=== PATIENT | male | born 1960 | race Caucasian/White ===

== ENCOUNTER 2017-10-28 16:38 | Inpatient (IN) | payer SELFPAY ==
[~2017-10-28] VITALS: Ht 172.7 cm; Wt 70.1 kg
[2017-10-28] VITALS (19 sets, daily range): BP systolic 149–220; BP diastolic 87–136
[2017-10-28] MEDS ORDERED: LABETALOL HCL 20 MG/4 ML VIAL ONE (16:59)
--- NOTE | 2017-10-28 17:13 | ED Cardiac General ---
History of Present Illness General Stated Complaint: HIGH BP Source: patient, family Exam Limitations: no limitations History of Present Illness Date Seen by Provider: Oct 28, 2017 Time Seen by Provider: 17:04 Initial Comments Patient presents to the ER by private conveyance from the urgent care clinic where he was seen for high blood pressure. He reports a high blood pressure in the 280 systolic range. He has not been following with a doctor since 2002 when he had a heart attack. He does not take any medications. He has no other known history but his significant other reports that for the last 3 months she thinks she's been dragging his left side and she is afraid he might of had a stroke. He is not having any facial asymmetry, slurred speech or confusion presently but he is reporting for the past 3-6 months is been wobbly on his feet and prone to falls. He's not had any recent falls. His not had any blackouts or brownouts. He is not having any chest pain, shortness of breath, nausea, fevers , chills, cough, dysuria. He has slowed is drinking down significantly he says. He smokes about half pack per day. Allergies and Home Medications Allergies Coded Allergies: No Known Drug Allergies (Unverified , 10/28/17) Patient Home Medication List Home Medication List Reviewed: Yes Review of Systems Constitutional: No chills, No diaphoresis, No fever, No malaise EENTM: No Blurred Vision, No Double Vision Respiratory: Denies Cough, Denies Shortness of Air Cardiovascular: Denies Chest Pain, Denies Edema Gastrointestinal: Denies Abdomen Distended, Denies Abdominal Pain, Denies Nausea, Denies Vomiting Genitourinary: Denies Burning, Denies Discharge Musculoskeletal: No back pain, No joint pain Skin: No pruritus, No rash Psychiatric/Neurological: Denies Headache, Denies Numbness, Denies Paresthesia ; Pre-Existing Deficit; Denies Seizure Past Lfxispd-Kszqev-Fqtbba Hx Patient Social History Alcohol Use: Occasionally Uses Recreational Drug Use: No Smoking Status: Current Everyday Smoker Type Used: Cigarettes (0.5 ppd) Recent Foreign Travel: No Contact w/Someone Who Travel: No Physical Exam Vital Signs Capillary Refill : Height, Weight, BMI Height: '" Weight: lbs. oz. kg; BMI Method: General Appearance: No Apparent Distress, WD/WN HEENT: PERRL/EOMI, TMs Normal, Normal ENT Inspection, Pharynx Normal, Moist Mucous Membranes Neck: Full Range of Motion, Normal Inspection, Non Tender, Supple Respiratory: Chest Non Tender, Lungs Clear, Normal Breath Sounds, No Accessory Muscle Use, No Respiratory Distress Cardiovascular: Regular Rate, Rhythm, No Edema, Normal Peripheral Pulses Gastrointestinal: Normal Bowel Sounds, Non Tender, Soft Extremity: Normal Capillary Refill, Non Tender, No Calf Tenderness, No Pedal Edema Neurologic/Psychiatric: Alert, Oriented x3, No Motor/Sensory Deficits, Normal Mood/Affect, eye physician II-XII Norm as Tested; No Disoriented, No Facial Droop, No Motor Weakness; Other (negative for pronator drift times all 4 extremities. NIH scale 0) Skin: Normal Color, Warm/Dry Progress/Results/Core Measures Results/Orders Lab Results Laboratory Tests Test 10/28/17 16:55 10/28/17 17:31 10/28/17 18:08 Range/Units White Blood Count 11.1 H 4.3-11.0 10^3/uL Red Blood Count 5.43 4.35-5.85 10^6/uL Hemoglobin 17.6 13.3-17.7 G/DL Hematocrit 47 40-54 % Mean Corpuscular Volume 87 80-99 FL Mean Corpuscular Hemoglobin 32 25-34 PG Mean Corpuscular Hemoglobin Concent 37 H 32-36 G/DL Red Cell Distribution Width 13.1 10.0-14.5 % Platelet Count 247 130-400 10^3/uL Mean Platelet Volume 10.3 7.4-10.4 FL Neutrophils (%) (Auto) 63 42-75 % Lymphocytes (%) (Auto) 24 12-44 % Monocytes (%) (Auto) 7 0-12 % Eosinophils (%) (Auto) 5 0-10 % Basophils (%) (Auto) 1 0-10 % Neutrophils # (Auto) 7.0 1.8-7.8 X 10^3 Lymphocytes # (Auto) 2.7 1.0-4.0 X 10^3 Monocytes # (Auto) 0.8 0.0-1.0 X 10^3 Eosinophils # (Auto) 0.5 H 0.0-0.3 10^3/uL Basophils # (Auto) 0.1 0.0-0.1 10^3/uL Prothrombin Time 13.4 12.2-14.7 SEC INR Comment 1.0 0.8-1.4 Activated Partial Thromboplast Time 28 24-35 SEC D-Dimer 0.31 0.00-0.49 UG/ML Sodium Level 138 135-145 MMOL/L Potassium Level 3.4 L 3.6-5.0 MMOL/L Chloride Level 102 98-107 MMOL/L Carbon Dioxide Level 25 21-32 MMOL/L Anion Gap 11 5-14 MMOL/L Blood Urea Nitrogen 15 7-18 MG/DL Creatinine 1.55 H 0.60-1.30 MG/DL Estimat Glomerular Filtration Rate 46 BUN/Creatinine Ratio 10 Glucose Level 126 H 70-105 MG/DL Calcium Level 10.1 8.5-10.1 MG/DL Total Bilirubin 1.5 H 0.1-1.0 MG/DL Aspartate Amino Transf (AST/SGOT) 45 H 5-34 U/L Alanine Aminotransferase (ALT/SGPT) 51 0-55 U/L Alkaline Phosphatase 119 40-136 U/L Troponin I < 0.30 <0.30 NG/ML Total Protein 8.7 H 6.4-8.2 GM/DL Albumin 4.7 H 3.2-4.5 GM/DL Glucometer 114 H 70-110 MG/DL Urine Color JUDSON H Urine Clarity CLEAR Urine pH 5 5-9 Urine Specific [place] 1.020 1.016-1.022 Urine Protein 4+ NEGATIVE Urine Glucose (UA) NEGATIVE NEGATIVE Urine Ketones NEGATIVE NEGATIVE Urine Nitrite NEGATIVE NEGATIVE Urine Bilirubin NEGATIVE NEGATIVE Urine Urobilinogen 4 H NORMAL MG/DL Urine Leukocyte Esterase 2+ H NEGATIVE Urine RBC (Auto) 3+ H NEGATIVE Urine RBC 5-10 H /HPF Urine WBC 5-10 H /HPF Urine Crystals NONE /LPF Urine Bacteria TRACE /HPF Urine Casts NONE /LPF Urine Mucus LARGE H /LPF Urine Culture Indicated YES My Orders Orders - EZEQUIEL RIGGS Labetalol Injection (Normodyne Injection (10/28/17 16:59) Cbc With Automated Diff (10/28/17 17:05) Protime With Inr (10/28/17 17:05) Partial Thromboplastin Time (10/28/17 17:05) Comprehensive Metabolic Panel (10/28/17 17:05) Fibrin Degradation Products (10/28/17 17:05) Troponin I (10/28/17 17:05) Ua Culture If Indicated (10/28/17 17:05) Chest 1 View, Ap/Pa Only (10/28/17 17:05) Ekg Tracing (10/28/17 17:05) Nothing By Mouth (10/29/17 Breakfast) Accucheck Stat ONCE (10/28/17 17:05) Saline Lock/Iv-Start (10/28/17 17:05) Saline Lock/Iv-Start (10/28/17 17:05) Vital Signs Stroke Patient Q15M (10/28/17 17:05) Ct Head Wo-R/O Stroke (10/28/17 17:05) O2 (10/28/17 17:05) Labetalol Injection (Normodyne Injection (10/28/17 17:15) Monitor-Rhythm Ecg Trace Only (10/28/17 17:05) Dysphagia Screening Tool (10/28/17 17:05) Lipid Panel (10/29/17 06:00) Labetalol Injection (Normodyne Injection (10/28/17 17:15) Labetalol Injection (Normodyne Injection (10/28/17 17:15) Medications Given in ED Current Medications Medications Dose Ordered Sig/Yumiko Route Start Time Stop Time Status Last Admin Dose Admin Labetalol HCl 10 mg ONCE ONCE IV 10/28/17 17:15 10/28/17 17:16 DC 10/28/17 17:03 10 MG Progress Progress Note : Time: 17:18 Progress Note PE claims that he is unstable on his feet for the past 6 months but other than that this would be a hypertensive urgency as there is no neurologic deficits, chest pain, shortness of breath. We are going to obtain CT of his head see if there is any contributors. We've given him 20 mg of labetalol meds bringing his heart rate and blood pressure down although did not want to lower it any more than 30% and I would like to keep it around 180-200 systolic or above. Initial ECG Impression Date: Oct 28, 2017 Initial ECG Impression Time: 17:00 Initial ECG Rate: 113 Initial ECG Rhythm: Normal Sinus Initial ECG Intervals: QT (483) Initial ECG Impression: Nonspecific Changes (sinus tachycardia) Initial ECG Comparisson: No Previous ECG Available Comment Sinus tachycardia without appreciable ST-T wave elevation or depression. Diagnostic Imaging Diagonstic Imaging: Xray Plain Films/CT/US/NM/MRI: chest (1v) Reviewed: Reviewed by Me Diagonstic Imaging: CT Plain Films/CT/US/NM/MRI: head (without contrast) Reviewed: Reviewed by Me Departure Communication (Admissions) Time/Spoke to Admitting Phy: 18:40 Discussed case lab imaging Rocephin and labetalol drip and she will see the patient. She is okay with ICU admission. Dr. Brizuela. Impression Primary Impression: Hypertensive emergency without congestive heart failure Additional Impressions: TOI (acute kidney injury) UTI (urinary tract infection) Qualified Codes: N30.01 - Acute cystitis with hematuria Disposition: ADMITTED INPATIENT Condition: Stable Admissions Decision to Admit Reason: Admit from ER (General) Decision to Admit/Date: Oct 28, 2017 Time/Decision to Admit Time: 19:06 Departure-Patient Inst. Referrals: ANGEL BRIGGS MD (PCP) Primary Care Physician [facility] (Family) Primary Care Physician EZEQUIEL RIGGS Oct 28, 2017 17:13
[2017-10-28] MEDS ORDERED: LABETALOL HCL 20 MG/4 ML VIAL IV ONE ×2 (17:15)
[2017-10-28] MEDS ORDERED: LABETALOL INJECTION 200 MG in NS (IVPB) 160 ML IV SCH (17:15)
[2017-10-28 17:34] LABS: BASOPHILS # (AUTO) 0.1 10^3/uL (0.0-0.1); BASOPHILS % (AUTO) 1 % (0-10); EOSINOPHILS # (AUTO) 0.5 10^3/uL (0.0-0.3); EOSINOPHILS % (AUTO) 5 % (0-10); HEMATOCRIT 47 % (40-54); HEMOGLOBIN 17.6 G/DL (13.3-17.7); LYMPHOCYTES # (AUTO) 2.7 X 10^3 (1.0-4.0); LYMPHOCYTES % (AUTO) 24 % (12-44); MEAN CORPUSCULAR HEMOGLOBIN 32 PG (25-34); MEAN CORPUSCULAR HGB CONC 37 G/DL (32-36); MEAN CORPUSCULAR VOLUME 87 FL (80-99); MEAN PLATELET VOLUME 10.3 FL (7.4-10.4); MONOCYTES # (AUTO) 0.8 X 10^3 (0.0-1.0); MONOCYTES % (AUTO) 7 % (0-12); NEUTROPHILS % (AUTO) 63 % (42-75); PLATELET COUNT 247 10^3/uL (130-400); RED BLOOD COUNT 5.43 10^6/uL (4.35-5.85); RED CELL DISTRIBUTION WIDTH 13.1 % (10.0-14.5); WHITE BLOOD COUNT 11.1 10^3/uL (4.3-11.0)
--- NOTE | 2017-10-28 17:35 | Diagnostic Imaging Report ---
INDICATION: Hypertension, headache. COMPARISON: None. FINDINGS: Uumx-ej-qgeummly chronic small vessel ischemic changes are seen in the subcortical and periventricular white matter. There is no significant cerebral volume loss. There is no focus of acute ischemia or hemorrhage. No extra-axial fluid collection is identified. There is no dense vessel sign. The bony calvarium, visualized paranasal sinuses and mastoids are clear. IMPRESSION: 1. No acute intracranial abnormality. 2. Advanced chronic small vessel ischemic changes in the periventricular and subcortical white matter. Consider MRI for further evaluation. Dictated by: Dictated on workstation # [id number]
--- NOTE | 2017-10-28 17:47 | Diagnostic Imaging Report ---
Indication: Hypertension and suspected stroke. Frontal chest obtained at 5:23 p.m. FINDINGS: Heart and mediastinal silhouette are normal appearance. The lungs are clear. There is no pneumothorax or pleural fluid. IMPRESSION: Negative chest. Dictated by: Dictated on workstation # [id number]
[2017-10-28 17:51] LABS: FIBRIN DEGRADATION PRODUCTS 0.31 UG/ML (0.00-0.49); PROTHROMBIN TIME PATIENT 13.4 SEC (12.2-14.7)
[2017-10-28 17:52] LABS: ALANINE AMINOTRANSFERASE 51 U/L (0-55); ALBUMIN 4.7 GM/DL (3.2-4.5); ALKALINE PHOSPHATASE 119 U/L (40-136); BILIRUBIN,TOTAL 1.5 MG/DL (0.1-1.0); BUN/CREATININE RATIO 10; CALCIUM 10.1 MG/DL (8.5-10.1); CARBON DIOXIDE 25 MMOL/L (21-32); CHLORIDE 102 MMOL/L (98-107); CREATININE SERUM 1.55 MG/DL (0.60-1.30); GFR ESTIMATED 46; GLUCOSE 126 MG/DL (70-105); POTASSIUM 3.4 MMOL/L (3.6-5.0); SODIUM 138 MMOL/L (135-145); TOTAL PROTEIN 8.7 GM/DL (6.4-8.2)
[2017-10-28 18:21] LABS: BILIRUBIN,URINE NEGATIVE (NEGATIVE); CLARITY,URINE CLEAR; COLOR,URINE AMBER; GLUCOSE, URINE (UA) NEGATIVE (NEGATIVE); KETONES,URINE NEGATIVE (NEGATIVE); LEUKOCYTE ESTERASE ,URINE 2+ (NEGATIVE); NITRITE,URINE NEGATIVE (NEGATIVE); PH,URINE 5 (5-9); PROTEIN,URINE 4+ (NEGATIVE); UROBILINOGEN,URINE 4 MG/DL (NORMAL)
[2017-10-28 18:52] LABS: BACTERIA,URINE TRACE /HPF
[2017-10-28] MEDS ORDERED: CATHETER FLUSH 10 ML SYR IV PRN (19:15)
[2017-10-28] MEDS ORDERED: NS IV PRN ×2 (19:15)
[2017-10-28] MEDS ORDERED: ONDANSETRON 4 MG/2 ML (SDV) Z0FRAN IV PRN (19:15)
[2017-10-28] MEDS ORDERED: LABETALOL IV PRN ×2 (19:15)
[2017-10-28] MEDS: CATHETER FLUSH 10 ML SYR IV SCH (22:00)
[2017-10-28] MEDS: ACETAMINOPHEN 500 MG TAB (TYLENOL) PO PRN (22:02)
[2017-10-29] VITALS (39 sets, daily range): BP systolic 146–193; BP diastolic 87–127
[2017-10-29] MEDS ORDERED: NS IV 500 ML 500 ML ONE ×2 (00:05→01:10)
[2017-10-29] MEDS ORDERED: NS IV 500 ML 500 ML IV ONE ×2 (00:15→01:15)
[2017-10-29 03:32] LABS: BASOPHILS # (AUTO) 0.1 10^3/uL (0.0-0.1); BASOPHILS % (AUTO) 1 % (0-10); EOSINOPHILS # (AUTO) 0.3 10^3/uL (0.0-0.3); EOSINOPHILS % (AUTO) 3 % (0-10); HEMATOCRIT 40 % (40-54); HEMOGLOBIN 14.9 G/DL (13.3-17.7); LYMPHOCYTES % (AUTO) 30 % (12-44); MEAN CORPUSCULAR HEMOGLOBIN 33 PG (25-34); MEAN CORPUSCULAR HGB CONC 37 G/DL (32-36); MEAN CORPUSCULAR VOLUME 90 FL (80-99); MEAN PLATELET VOLUME 10.2 FL (7.4-10.4); MONOCYTES # (AUTO) 0.9 X 10^3 (0.0-1.0); MONOCYTES % (AUTO) 9 % (0-12); NEUTROPHILS # (AUTO) 5.7 X 10^3 (1.8-7.8); NEUTROPHILS % (AUTO) 57 % (42-75); PLATELET COUNT 216 10^3/uL (130-400); RED BLOOD COUNT 4.51 10^6/uL (4.35-5.85); RED CELL DISTRIBUTION WIDTH 12.9 % (10.0-14.5)
[2017-10-29 03:49] LABS: CREATININE SERUM 1.56 MG/DL (0.60-1.30); MAGNESIUM 2.2 MG/DL (1.8-2.4); PHOSPHORUS 4.1 MG/DL (2.3-4.7); POTASSIUM 3.5 MMOL/L (3.6-5.0)
--- NOTE | 2017-10-29 05:31 | Pulmonary Consultation ---
History of Present Illness History of Present Illness Date of Consultation 10/29/17 05:23 Time Seen by Provider: 05:23 Date of Admission History of Present Illness 57yo with hx of HTN, tobacco use, CAD (HX of [place] 2002) who presented from cardiology office secondary to HTN emergency SBP 280. Over the last 3 moths patient has been having left sided weakness, unsteady gait. Pt was admitted to ICU with Labetalol. CT of head only shows chronic changes. Denies facial asymmetry, slurred speech, or confusion. I am consulted for ICU management. Allergies and Home Medications Allergies Coded Allergies: No Known Drug Allergies (Unverified , 10/28/17) Past Usbjhwz-Ajvzsf-Riekxq Hx Patient Social History Alcohol Use: Occasionally Uses Alcohol Beverage of Choice: Beer Recreational Drug Use: No Smoking Status: Current Everyday Smoker Type Used: Cigarettes Recent Foreign Travel: No Contact w/Someone Who Travel: No Recent Infectious Disease Expo: No Recent Hopitalizations: No Physical Abuse: No Sexual Abuse: No Seasonal Allergies Seasonal Allergies: No Past Medical History Surgeries: No Respiratory: No Cardiac: Yes Heart Attack Neurological: No Genitourinary: No Gastrointestinal: No Musculoskeletal: No Endocrine: No HEENT: No (diminished vision bilaterally, needs new glasses) Cancer: No Psychosocial: No Nursing Suicide Risk Score: 0 Integumentary: No Blood Disorders: No Review of Systems Time Seen by Provider: 06:09 Constitutional: Sweats, Weakness, Malaise Eyes: No: Pain, Vision change, Conjunctivae inflammation, Eyelid inflammation, Other, Redness Respiratory: No: Cough, Dry, Shortness of breath, SOB with excertion, Wheezing , Hemoptysis, Pleuritic Pain, Sputum, Wheezing, Other Sepsis Event Evaluation Height, Weight, BMI Height: 5'8.00" Weight: 153lbs. 12.0oz. 69.446939so; 23.4 BMI Method:Stated Exam Exam Vital Signs Date Time Temp Pulse Resp B/P (MAP) Pulse Ox O2 Delivery O2 Flow Rate FiO2 10/29/17 04:00 60 16 159/90 (113) 95 Room Air 10/29/17 03:45 61 10 179/91 (120) 97 Room Air 10/29/17 03:30 60 16 160/98 (118) 96 Room Air 10/29/17 03:15 64 13 154/111 (125) 98 Room Air 10/29/17 03:00 65 15 158/90 (112) 95 Room Air 10/29/17 02:45 68 16 157/103 (121) 95 Room Air 10/29/17 02:30 67 16 159/92 (114) 95 Room Air 10/29/17 02:15 63 15 165/95 (118) 97 Room Air 10/29/17 02:00 71 14 154/94 (114) 95 Room Air 10/29/17 01:45 73 18 161/92 (115) 95 Room Air 10/29/17 01:30 69 15 152/87 (108) 100 Room Air 10/29/17 01:15 71 14 160/96 (117) 98 Room Air 10/29/17 01:00 70 18 154/93 (113) 96 Room Air 10/29/17 01:00 70 10/29/17 00:45 75 162/96 (118) Room Air 10/29/17 00:30 72 163/90 (114) Room Air 10/29/17 00:15 74 158/100 (119) Room Air 10/29/17 00:00 97 Room Air 10/29/17 00:00 97.0 74 156/95 (115) Room Air 10/28/17 23:45 75 18 154/97 (116) 99 Room Air 10/28/17 23:30 79 20 175/98 (123) 90 Room Air 10/28/17 23:15 75 17 169/94 (119) 96 Room Air 10/28/17 23:00 79 14 163/98 (119) 96 Room Air 10/28/17 22:45 79 12 162/101 (121) 97 Room Air 10/28/17 22:30 77 24 160/96 (117) 93 Room Air 10/28/17 22:15 80 14 149/97 (114) 96 Room Air 10/28/17 22:00 84 11 164/87 (112) 96 Room Air 10/28/17 21:45 81 21 160/98 (118) 96 Room Air 10/28/17 21:30 87 21 166/111 (129) 96 Room Air 10/28/17 21:15 84 19 168/100 (122) 96 Room Air 10/28/17 21:00 86 11 171/92 (118) 96 Room Air 10/28/17 20:45 85 18 185/99 (127) 95 Room Air 10/28/17 20:30 87 29 178/108 (131) 95 Room Air 10/28/17 20:00 99 Room Air 10/28/17 20:00 84 20 180/123 (142) 97 Room Air 10/28/17 19:45 84 25 220/136 (164) 96 Room Air 10/28/17 19:30 88 20 211/133 (159) 97 Room Air 10/28/17 19:15 86 27 215/130 (158) 96 Room Air 10/28/17 19:00 90 22 95 Room Air 10/28/17 19:00 90 10/28/17 18:48 99.1 91 21 209/133 (158) 97 Room Air 10/28/17 18:40 92 12 197/135 99 10/28/17 16:45 97.9 122 18 0/183 (123) 97 I & O 10/29/17 07:00 Intake Total 200 ml Balance 200 ml Height & Weight Height: 5'8.00" Weight: 153lbs. 12.0oz. 69.076089qt; 23.4 BMI Method:Stated General Appearance: No Apparent Distress, WD/WN HEENT: PERRL/EOMI, TMs Normal, Normal ENT Inspection, Pharynx Normal, Moist Mucous Membranes Neck: Full Range of Motion, Normal Inspection, Non Tender, Supple Respiratory: Chest Non Tender, Lungs Clear, Normal Breath Sounds, No Accessory Muscle Use, No Respiratory Distress Cardiovascular: Regular Rate, Rhythm, No Edema, Normal Peripheral Pulses Capillary Refill: Less Than 3 Seconds Extremity: Normal Capillary Refill, Non Tender, No Calf Tenderness, No Pedal Edema Neurologic/Psychiatric: Alert, Oriented x3, No Motor/Sensory Deficits, Normal Mood/Affect, concert manager II-XII Norm as Tested; No Disoriented, No Facial Droop, No Motor Weakness; Other (negative for pronator drift times all 4 extremities. NIH scale 0) Skin: Normal Color, Warm/Dry Results Lab Laboratory Tests 10/28/17 16:55 10/29/17 03:10 Assessment/Plan Assessment/Plan HTN emergency -Continue PRN Labetalol Renal failure probably chronic - No previous labs to compare with -Monitor -IVF- urine is very concentrated and decreased will give 1 liter IVF bolus and then start at 125 Will transfer to floor later today if BP remains stable. SAGRARIO ROBLERO DO Oct 29, 2017 05:31
[2017-10-29] MEDS ORDERED: POTASSIUM CL 10MEQ/50ML IVPB 50 ML IV SCH ×2 (05:45→06:00)
[2017-10-29] MEDS ORDERED: NS IV 1000 ML 1,000 ML ONE ×2 (05:50→06:15)
[2017-10-29] MEDS: NS IV 1000 ML 1,000 ML IV SCH ×3 (06:00→22:00)
[2017-10-29] MEDS ORDERED: KCL 20 MEQ TAB (K-DUR) PO SCH (06:00)
[2017-10-29] MEDS ORDERED: KCL 20 MEQ TAB (K-DUR) PO ONE (06:00)
[2017-10-29] MEDS ORDERED: MAGNESIUM 1 GM/100 ML IVPB 100 ML IV SCH (06:00)
[2017-10-29] MEDS ORDERED: NS IV 1000 ML 1,000 ML IV ONE (06:15)
[2017-10-29] MEDS: CATHETER FLUSH 10 ML SYR IV SCH ×3 (06:24→22:00)
--- NOTE | 2017-10-29 07:53 | History & Physical-Hospitalist ---
History of Present Illness HPI/Chief Complaint Pt is a 57yoCM with CAD with MD and HTN who presented to ER from [facility] clinic due to hypertension. He presented to [facility] to establish care as he has not seen a doctor in years and was found to have a SBP of greater 280 on 5 rechecks so was referred to the ER. On arrival here he remained hypertensive (reportedly >250/ 150). He denied any symptoms including chest pain, palpitations, SOB, headache, burry vision. His only compliant is 5-6 month history of staggering when he walks. Source: patient Date Seen 10/29/17 Time Seen by Provider: 08:01 Attending Physician Annika Brizuela MD PCP Zaki Gutierres MD Referring Physician Date of Admission Oct 28, 2017 at 6:16 pm Home Medications & Allergies Home Medications Reviewed patient Home Medication Reconciliation performed by pharmacy medication reconciliations machine set up technician and/or nursing. Patients Allergies have been reviewed. Allergies Allergies Coded Allergies No Known Drug Allergies (Unverified10/28/17) Past Ashfper-Qxcptp-Oprcqe Hx Past Med/Social Hx: Reviewed Nursing Past Med/Soc Hx Patient Social History Employed/Student: employed Alcohol Use: Occasionally Uses Alcohol Beverage of Choice: Beer Recreational Drug Use: No Smoking Status: Current Everyday Smoker Type Used: Cigarettes Physical Abuse Screen: No Sexual Abuse: No Recent Foreign Travel: No Contact w/other who traveled: No Recent Hopitalizations: No Recent Infectious Disease Expo: No Seasonal Allergies Seasonal Allergies: No Past Medical History Cardiac: Heart Attack, Hypertension History of Blood Disorders: No Family History Reviewed Nursing Family Hx Heart Disease, CAD Over 55 Years Old Review of Systems Constitutional: No chills, No fever EENTM: No blurred vision, No double vision, No nose congestion, No throat pain Respiratory: No cough, No dyspnea on exertion, No short of breath Cardiovascular: No chest pain, No edema, No palpitations Gastrointestinal: No abdominal pain, No constipation, No diarrhea, No nausea, No vomiting Genitourinary: No dysuria, No frequency Musculoskeletal: No joint pain, No muscle pain Skin: No lesions, No rash Psychiatric/Neurological: Denies Headache, Denies Numbness, Denies Tingling Physical Exam Physical Exam Vital Signs Vital Signs - First Documented 10/28/17 10/28/17 16:45 18:48 Temp 97.9 Pulse 122 Resp 18 B/P (MAP) 0/183 (123) Pulse Ox 97 O2 Delivery Room Air Capillary Refill : Less Than 3 Seconds Height, Weight, BMI Height: 5'8.00" Weight: 152lbs. 12.0oz. 68.160046ow; 23.4 BMI Method:Stated General Appearance: No Apparent Distress, WD/WN HEENT: PERRL/EOMI, Moist Mucous Membranes Neck: Non Tender, Supple Respiratory: Lungs Clear, No Respiratory Distress Cardiovascular: Regular Rate, Rhythm, No Murmur Gastrointestinal: Normal Bowel Sounds, Non Tender, Soft Extremity: Normal Capillary Refill, No Calf Tenderness Neurologic/Psychiatric: Alert, Oriented x3, Normal Mood/Affect Skin: Normal Color, Warm/Dry Results Results/Procedures Labs Laboratory Tests 10/28/17 16:55 10/29/17 03:10 Patient resulted labs reviewed. Imaging: Reviewed Imaging Report Assessment/Plan Admission Diagnosis Hypertensive Emergency Admission Status: Inpatient Order (span 2 midnights) Reason for Inpatient Admission: ICU admission, IV labetolol Diagnosis/Problems Diagnosis/Problems (1) Asymptomatic hypertensive urgency Status: Acute Assessment & Plan: Started on Labetalol gtt in ER Titrate off last night BP within goal today (reduction of 25% in MAP) Trend Echo ordered (2) TOI (acute kidney injury) Status: Acute Assessment & Plan: Unsure if TOI or CKD Continue IVF Will likely need Nephrology evaluation as a outpatient (3) CAD (coronary artery disease) Status: Chronic Assessment & Plan: Lipid Panel Reports no previous stents Does not follow with cardiology Cardiology consulted, appreciate recs Qualifiers: Coronary Disease-Associated Artery/Lesion type: [place] artery [place] vs. transplanted heart: [place] heart Associated angina: without angina Qualified Codes: I25.10 - Atherosclerotic heart disease of [place] coronary artery without angina pectoris (4) Prophylactic measure Assessment & Plan: Lovenox NS at 125ml/hr HH Diet Clinical Quality Measures DVT/VTE Risk/Contraindication: Risk Factor Score Per Nursin RFS Level Per Nursing on Admit: 2=Moderate ANNIKA BRIZUELA MD Oct 29, 2017 7:53 am
[2017-10-29] MEDS: ENOXAPARIN 40 MG/0.4 ML (LOVENOX) SYR SC SCH (08:48)
--- NOTE | 2017-10-29 09:43 | Physical Therapy Evaluation ---
PT Evaluation-General Medical Diagnosis Admission Date Oct 28, 2017 at 18:16 Medical Diagnosis: HTN/TOI Onset Date: Oct 28, 2017 Therapy Diagnosis Therapy Diagnosis: debility Height/Weight Height (Feet): 5 Height (Inches): 8.00 Weight (Pounds): 152 Weight (Ounces): 12.0 Precautions Precautions/Isolations: Standard Precautions Weight Bear Status Right Lower Extremity: Right Weight Bearing/Tolerated Left Lower Extremity: Left Weight Bearing/Tolerated Referral Physician: Gelacio Reason for Referral: Evaluation/Treatment Medical History Pertinent Medical History: Alcoholism, CAD, HTN, [place], Smoking Current History ED with HTN Reviewed History: Yes Social History Home: Single Level Current Living Status: Alone Prior/Core FIM Prior Level of Function Functional [place] Measure 0=Not Assessed/NA 4=Minimal Assistance 1=Total Assistance 5=Supervision or Setup 2=Maximal Assistance 6=Modified [place] 3=Moderate Assistance 7=Complete [place] Bed Mobility: 7 Transfers (B,C,W/C) (FIM): 7 Gait: 7 PT Evaluation-Current Subjective Patient is very agreeable to participate with PT. Pain Numeric Pain Scale: 0-No Pain Location: No Pain Reported Objective Patient Orientation: Normal For Age Problem Solving: Fair Attachments: IV ROM/Strength ROM Lower Extremities bilateral LE WNL Strength Lower Extremities 4+/5 grossly bilateral LE Integumentary/Posture Integumentary refer to nursing notes Bowel Incontinence: No Bladder Incontinence: No Posture WFL Neuromuscular (Tone, Coordination, Reflexes) diminished coordination/proprioception Sensory Vision: Wears Glasses Hearing: Functional Sensation Right Lower Extremit: Intact Sensation Left Lower Extremity: Intact Transfers Functional [place] Measure 0=Not Assessed/NA 4=Minimal Assistance 1=Total Assistance 5=Supervision or Setup 2=Maximal Assistance 6=Modified [place] 3=Moderate Assistance 7=Complete [place] Transfers (B, C, W/C) (FIM): 7 Scootin Rollin Supine to/from Sit: 7 Sit to/from Stand: 7 Gait Mode of Locomotion: Walk Anticipated Mode of Locomotion: Walk Gait (FIM): 7 Distance (FIM): 3=150 ft Distance: 300' Gait Level of Assist: 7 Gait Assistive Device: None Comments/Gait Description demonstrates CP gait like sequence/ambulates on balls of feet with flexed knee posture Balance Sitting Static: Normal Sitting Dynamic: Normal Standing Static: Fair Standing Dynamic: Fair Treatment Patient has decreased safety awareness and reports he has been walking like this all his life. Assessment/Needs 57 y.o. male, is currently at independent [facility] with gross motor skills. Patient declined use of FWW for mobility and reports he is fine and has walked like this all his life. Dr. Brizuela notified. Rehab Potential: Fair PT Plan Treatment/Plan Treatment Plan: Discontinue PT, goals met Treatment Plan: Other Treatment Duration: Oct 29, 2017 Frequency: 1 time per week Estimated Hrs Per Day: .25 hour per day Patient and/or Family Agrees t: Yes Safety Risks/Education Patient Education: Safety Issues Teaching Recipient: Patient Teaching Methods: Discussion Response to Teaching: Reinforcement Needed Discharge Recommendations Therapy D/C Recommendations: Home Independently Time/GCodes Time In: 915 Time Out: 929 Total Billed Treatment Time: 14 Total Billed Treatment 1 visit EVModC 14 min G Codes Necessary: LIDA Hemphill PT Oct 29, 2017 09:43
--- NOTE | 2017-10-29 09:56 | Diagnostic Imaging Report ---
INDICATION: Hypertension. COMPARISON: Comparison made with prior examination 10/28/2017. FINDINGS: There is cardiomegaly. Lungs are clear. No pleural effusion or pneumothorax. Mediastinum is unremarkable. IMPRESSION: 1. No acute cardiopulmonary abnormality. 2. Cardiomegaly. Dictated by: Dictated on workstation # [id number]
[2017-10-29] MEDS ORDERED: amLODIPine 5 MG (NORVASC) TAB PO SCH (15:15)
--- NOTE | 2017-10-29 16:36 | Diagnostic Imaging Report ---
PROCEDURE: US Renal Bilateral. TECHNIQUE: Multiple real-time grayscale images were obtained over the kidneys in various projections bilaterally. INDICATION: Acute kidney injury. FINDINGS: There are no prior studies available for comparison. Both kidneys are identified. The right kidney measures 10.3 x 5.3 x 5.5 cm while the left kidney is estimated to be 11.9 x 5.3 x 5.6 cm. There is no evidence for a solid renal mass or for hydronephrosis of either kidney. Renal cortices are normal in thickness and echogenicity. There is no shadowing from the kidneys to suggest nephrolithiasis. The bladder is fairly well distended. There is no bladder mass identified. Both ureteral jets are noted. IMPRESSION: 1. There is no evidence for a solid renal mass or for an acute abnormality of either kidney. 2. There is no sign of chronic medical renal disease. 3. The urinary bladder is grossly unremarkable. Dictated by: Dictated on workstation # [id number]
--- NOTE | 2017-10-29 17:40 | Consultation-Cardiology ---
HPI-Cardiology Cardiology Consultation: Date of Consultation 10/29/17 Date of Admission Attending Physician Caty Brizuela MD Admitting Physician Zaki Gutierres MD Consulting Physician Nisa CHAVARRIA MD HPI: Time Seen by Provider: 16:00 Chief Complaint: Severe hypertension This is a 57-year-old gentleman who according to the patient has history of KS but no stents or PTCA was done. He presented with significantly elevated blood pressure and was started on labetalol infusion. He has history of chronic kidney disease with a creatinine of 1.55. He has history of smoking as well. He denies any significant chest pain. Review of Systems-Cardiology Review of Systems Constitutional: As described under HPI; No As described under HPI, No no symptoms reported, No chills, No fever, No lightheadedness Eyes: No As described under HPI, No no symptoms reported, No blindness, No blurred vision, No contact lenses, No drainage, No decreased acuity, No foreign body sensation, No pain, No vision change Ears/Nose/Throat: No As described under HPI, No no symptoms reported, No chronic hearing loss, No ear discharge, No ear pain, No nasal drainage, No ulcerations Respiratory: No no symptoms reported; As described under HPI; No As described under HPI, No cough, No orthopnea, No shortness of breath, No SOB with excertion Cardiovascular: No no symptoms reported; As described under HPI; No As described under HPI, No chest pain, No edema, No irregular heart rate, No lightheadedness, No palpitations Gastrointestinal: No no symptoms reported, No As described under HPI, No abdomen distended, No abdominal pain, No blood streaked bowels, No constipation , No diarrhea, No nausea, No vomiting, No stool coloration changes Genitourinary: No As described under HPI, No burning, No dysuria, No discharge , No frequency, No flank pain, No hematuria, No urgency Skin: No rash, No skin related problems, No ulcerations Psychiatric/Neurological: No anxiety, No depression, No seizure, No focal weakness, No syncope Hematologic: No bleeding abnormalities [id number] Hx Patient Social History Employed/Student: employed Alcohol Use: Occasionally Uses Recreational Drug Use: No Smoking Status: Current Everyday Smoker Type Used: Cigarettes Recent Foreign Travel: No Recent Infectious Disease Expo: No Hospitalization with Isolation: Denies Physical Abuse Screen: No Sexual Abuse: No Past Medical History PMH As described under Assessment. Allergies and Home Medications Allergies Coded Allergies: No Known Drug Allergies (Unverified , 10/28/17) Patient Home Medication List Home Medication List Reviewed: Yes Physical Exam-Cardiology Physical Exam Vital Signs/I&O 10/29/17 10/29/17 10/29/17 10/29/17 05:45 06:00 06:15 06:30 Pulse 58 78 61 58 Resp 15 14 16 18 B/P (MAP) 146/95 (112) 173/105 (127) 178/100 (126) 178/101 (126) Pulse Ox 95 97 98 97 O2 Delivery Room Air Room Air Room Air Room Air 10/29/17 10/29/17 10/29/17 10/29/17 06:45 07:00 07:00 08:00 Pulse 60 64 56 61 Resp 16 34 13 B/P (MAP) 183/112 (135) 182/108 (132) 166/102 (123) Pulse Ox 98 98 98 O2 Delivery Room Air Room Air Room Air 10/29/17 10/29/17 10/29/17 10/29/17 08:00 08:48 09:00 10:00 Temp 97.8 Pulse 63 72 Resp 22 15 B/P (MAP) 179/127 (144) 171/97 (121) Pulse Ox 97 96 97 O2 Delivery Room Air Room Air Room Air Room Air 10/29/17 10/29/17 10/29/17 10/29/17 11:00 12:00 12:40 13:00 Pulse 56 62 64 Resp 15 11 22 B/P (MAP) 183/96 (125) 184/99 (127) 170/99 (122) Pulse Ox 97 97 94 O2 Delivery Room Air Room Air Room Air Room Air 10/29/17 10/29/17 10/29/17 13:00 14:00 15:00 Pulse 59 62 57 Resp 20 11 B/P (MAP) 179/94 (122) 190/107 (134) Pulse Ox 97 95 O2 Delivery Room Air Room Air 10/29/17 00:00 Intake Total 200 ml Balance 200 ml Capillary Refill : Less Than 3 Seconds Constitutional: appears stated age, AAO x 3; No apparent distress; well- developed, well-nourished HEENT: PERRL; No normal ENT inspection, No TMs normal, No pharynx normal, No scleral icterus (R), No scleral icterus (L), No pale conjunctivae (R), No pale conjunctivae (L), No photophobia, No TM abnormal (R), No TM abnormal (L), No pharyngeal erythema, No tonsillar exudate, No other, No discharge, No EOMI; hearing is well preserved; No hard of hearing; oral hygience is good; No ulceration, No xanthelasmas are seen Neck: No non-tender, No full range of motion, No supple, No normal inspection, No carotid bruit, No limited range of motion, No lymphadenopathy (R), No lymphadenopathy (L), No tender lateral, No tender midline, No thyromegaly, No other; carotid pulses are 2 + bilaterally; No with good upstrokes Respiratory: No accessory muscle use, No respiratory distress, No chest tender , No chest expansion is symmetric; chest is bilaterally symmetric; No lungs clear to percussion; lungs clear to auscultation; No crackles, No rhonchi, No rales, No stridor, No wheezing, No pleural rub, No other Cardiovascular: regular rate-rhythm; No irregularly irregular, No extra beats, No parasternal heave is noted, No JVD, No edema, No bradycardia, No tachycardia , No point of maximal impulse, No cardiac thrills are palpable; S1 and S2; No gallop/S3, No gallop/S4, No diastolic murmur, No systolic murmur, No friction rub, No click, No other Gastrointestinal: No tender, No soft, No round, No distended, No pulsatile mass , No organomegaly, No guarding, No rebound, No tenderness, No hernia, No mass, No audible bowel sounds, No abnormal bowel sounds, No abdominal bruits, No spleenomegaly, No other Rectal: deferred Extremities: No normal range of motion, No non-tender, No normal inspection, No pedal edema, No calf tenderness, No normal capillary refill, No pelvis stable , No calf tenderness, No inflammation, No pedal edema, No slow capillary refill , No swelling, No other, No abrasion, No clubbing, No cyanosis, No ecchymosis, No laceration, No no lower extremity edema bilateral, No significant edema, No tenderness, No wound Neurologic/Psychiatric: no motor/sensory deficits, alert, normal mood/affect, oriented x 3, power is 5/5 both on sides Skin: No normal color, No warm/dry, No cyanosis, No cool, No diaphoresis, No damp, No ecchymosis, No jaundice, No mottled, No pallor, No rash, No tattoos/ piercings, No ulcerations, No rash on exposed areas, No ulcerations on exposed areas, No other Data Review Labs Laboratory Tests 10/28/17 18:08: Urine Color AMBERH, Urine Clarity CLEAR, Urine pH 5, Urine Specific [place] 1.020, Urine Protein 4+, Urine Glucose (UA) NEGATIVE, Urine Ketones NEGATIVE, Urine Nitrite NEGATIVE, Urine Bilirubin NEGATIVE, Urine Urobilinogen 4H, Urine Leukocyte Esterase 2+H, Urine RBC (Auto) 3+H, Urine RBC 5-10H, Urine WBC 5-10H, Urine Crystals NONE, Urine Bacteria TRACE, Urine Casts NONE, Urine Mucus LARGEH , Urine Culture Indicated YES 10/29/17 03:10: White Blood Count 10.0, Red Blood Count 4.51, Hemoglobin 14.9, Hematocrit 40, Mean Corpuscular Volume 90, Mean Corpuscular Hemoglobin 33, Mean Corpuscular Hemoglobin Concent 37H, Red Cell Distribution Width 12.9, Platelet Count 216, Mean Platelet Volume 10.2, Neutrophils (%) (Auto) 57, Lymphocytes (%) (Auto) 30 , Monocytes (%) (Auto) 9, Eosinophils (%) (Auto) 3, Basophils (%) (Auto) 1, Neutrophils # (Auto) 5.7, Lymphocytes # (Auto) 3.0, Monocytes # (Auto) 0.9, Eosinophils # (Auto) 0.3, Basophils # (Auto) 0.1, Sodium Level 136, Potassium Level 3.5L, Chloride Level 105, Carbon Dioxide Level 22, Anion Gap 9, Blood Urea Nitrogen 17, Creatinine 1.56H, Estimat Glomerular Filtration Rate 46, BUN/ Creatinine Ratio 11, Glucose Level 111H, Calcium Level 9.0, Phosphorus Level 4.1 , Magnesium Level 2.2, Triglycerides Level 72, Cholesterol Level 124, LDL Cholesterol Direct 85, VLDL Cholesterol 14, HDL Cholesterol 27L Microbiology 10/28/17 Urine Culture - Preliminary, Resulted Sent To [facility] ECG Impression ECG Initial ECG Rhythm: Normal Sinus Comment LVH. A/P-Cardiology Assessment/Admission Diagnosis Severe uncontrolled hypertension, Active smoking, Chronic kidney disease, Previous history of an [place] Plan Severe uncontrolled hypertension: Blood pressure gradually reduced on labetalol infusion. We'll add amlodipine 5 mg daily. We will follow closely. Salt restriction was strongly recommended. Active smoking: Strongly recommended to quit. Chronic kidney disease: Request bilateral renal ultrasound to rule out renovascular hypertension. History of [place], no current evidence. Thank you for your consultation. Please call me if you have any questions. King Chavarria MD, FACP, FACC, FSCAI, FHRS, CCDS Interventional Cardiology Cardiac Electrophysiology Vascular Medicine and Endovascular Interventions Clinical Quality Measures DVT/VTE Risk/Contraindication: Risk Factor Score Per Nursin RFS Level Per Nursing on Admit: 2=Moderate Nisa CHAVARRIA MD Oct 29, 2017 5:39 pm
[2017-10-29] MEDS: NITROGLYCERIN 2% OINT 1 GM UNIT DOSE PACKET TOP PRN (21:06)
[2017-10-30] VITALS (10 sets, daily range): BP systolic 134–205; BP diastolic 59–117
[2017-10-30 04:36] LABS: BASOPHILS # (AUTO) 0.1 10^3/uL (0.0-0.1); BASOPHILS % (AUTO) 1 % (0-10); EOSINOPHILS # (AUTO) 0.4 10^3/uL (0.0-0.3); EOSINOPHILS % (AUTO) 5 % (0-10); HEMATOCRIT 41 % (40-54); HEMOGLOBIN 14.6 G/DL (13.3-17.7); LYMPHOCYTES % (AUTO) 31 % (12-44); MEAN CORPUSCULAR HEMOGLOBIN 32 PG (25-34); MEAN CORPUSCULAR HGB CONC 36 G/DL (32-36); MEAN CORPUSCULAR VOLUME 91 FL (80-99); MEAN PLATELET VOLUME 10.7 FL (7.4-10.4); MONOCYTES # (AUTO) 0.7 X 10^3 (0.0-1.0); MONOCYTES % (AUTO) 7 % (0-12); NEUTROPHILS # (AUTO) 5.4 X 10^3 (1.8-7.8); NEUTROPHILS % (AUTO) 57 % (42-75); PLATELET COUNT 217 10^3/uL (130-400); RED CELL DISTRIBUTION WIDTH 13.3 % (10.0-14.5); WHITE BLOOD COUNT 9.6 10^3/uL (4.3-11.0)
[2017-10-30 04:56] LABS: CALCIUM 9.2 MG/DL (8.5-10.1); CREATININE SERUM 1.39 MG/DL (0.60-1.30); MAGNESIUM 2.1 MG/DL (1.8-2.4); PHOSPHORUS 2.9 MG/DL (2.3-4.7); POTASSIUM 3.8 MMOL/L (3.6-5.0)
[2017-10-30] MEDS: CATHETER FLUSH 10 ML SYR IV SCH ×3 (05:09→22:31)
[2017-10-30] MEDS: ENOXAPARIN 40 MG/0.4 ML (LOVENOX) SYR SC SCH (07:43)
[2017-10-30] MEDS: amLODIPine 10 MG (NORVASC) TAB PO SCH (07:44)
--- NOTE | 2017-10-30 08:43 | Diagnostic Imaging Report ---
INDICATION: Hypertension. Portable chest 2:54 AM FINDINGS: Heart size and pulmonary vascularity are normal. Lungs are clear. There are no effusions or pneumothoraces. IMPRESSION: Negative chest. Dictated by: Dictated on workstation # [id number]
--- NOTE | 2017-10-30 09:42 | Discharge Inst-Simple/Standard ---
Discharge Inst-Standard Patient Instructions/Follow Up Plan of Care/Instructions/FU: Please take your medications as written. Please follow up with your doctors as written. Activity as Tolerated: Yes Discharge Diet: Low Sodium Diet, Cardiac Diet Return to The Hospital For: Chest pain, SOB, if you feel you are getting worse. ANNIKA BAILEY MD Oct 30, 2017 9:42 am
[2017-10-30] MEDS ORDERED: ASPI-586 PO (09:43)
[2017-10-30] MEDS ORDERED: AMLO10TA2 PO (09:43)
[2017-10-30] MEDS ORDERED: lisINopril 40 MG (PRINIVIL) TABLET PO NR (09:49)
--- NOTE | 2017-10-30 11:29 | Discharge Summary-Hospitalist ---
Diagnosis/Chief Complaint Date of Admission Oct 28, 2017 at 6:16 pm Date of Discharge Discharge Date: Oct 30, 2017 Admission Diagnosis Hypertensive Emergency Discharge Diagnosis (1) Asymptomatic hypertensive urgency Status: Acute Assessment & Plan: Started on Labetalol gtt in ER- titrate off quickly Started on Amlodipine and Lisinopril Echo ordered (2) TOI (acute kidney injury) Status: Acute Assessment & Plan: Likely CKD Will need follow up with Nephrology as an outpatient (3) CAD (coronary artery disease) Status: Chronic Assessment & Plan: Reports no previous stents Does not follow with cardiology Cardiology consulted, appreciate recs Will follow up with as an outpatient in 4 weeks (4) Prophylactic measure Assessment & Plan: Lovenox Saline lock HH Diet Discharge Summary Procedures/Consulations Dr Cid- Pulm Dr Chavarria- Cardiology Discharge Physical Exam Allergies: Coded Allergies: No Known Drug Allergies (Unverified , 10/28/17) Vitals & I&Os Vital Signs Date Time Temp Pulse Resp B/P (MAP) Pulse Ox O2 Delivery O2 Flow Rate FiO2 10/30/17 09:00 200/106 (137) Room Air 10/30/17 07:00 56 10/30/17 03:54 97.8 14 96 General Appearance: Alert, Oriented X3 Respiratory: Clear to Auscultation Cardiovascular: Regular Rate Hospital Course Pt was admitted due to malignant hypertension that required a labetalol gtt to control. He was quickly titrated off and started on oral medications for hypertension and his blood pressure improved. Discussed with patient the goal to slowly lower blood pressure back to a normal level. He has remained asymptomatic throughout the stay. He was discharged in stable and improved condition to follow up with [facility] on 11/04. Labs (last 24 hrs) Laboratory Tests 10/30/17 04:05: White Blood Count 9.6, Red Blood Count 4.50, Hemoglobin 14.6, Hematocrit 41, Mean Corpuscular Volume 91, Mean Corpuscular Hemoglobin 32, Mean Corpuscular Hemoglobin Concent 36, Red Cell Distribution Width 13.3, Platelet Count 217, Mean Platelet Volume 10.7H, Neutrophils (%) (Auto) 57, Lymphocytes (%) (Auto) 31 , Monocytes (%) (Auto) 7, Eosinophils (%) (Auto) 5, Basophils (%) (Auto) 1, Neutrophils # (Auto) 5.4, Lymphocytes # (Auto) 3.0, Monocytes # (Auto) 0.7, Eosinophils # (Auto) 0.4H, Basophils # (Auto) 0.1, Sodium Level 140, Potassium Level 3.8, Chloride Level 111H, Carbon Dioxide Level 20L, Anion Gap 9, Blood Urea Nitrogen 14, Creatinine 1.39H, Estimat Glomerular Filtration Rate 52, BUN/ Creatinine Ratio 10, Glucose Level 92, Calcium Level 9.2, Phosphorus Level 2.9, Magnesium Level 2.1 Microbiology 10/28/17 MRSA Screen - Final, Complete MRSA not isolated 10/28/17 Urine Culture - Final, Complete See Comments Sent To [facility] Patient resulted labs reviewed. Pending Labs Laboratory Tests 10/30/17 04:05: White Blood Count 9.6, Red Blood Count 4.50, Hemoglobin 14.6, Hematocrit 41, Mean Corpuscular Volume 91, Mean Corpuscular Hemoglobin 32, Mean Corpuscular Hemoglobin Concent 36, Red Cell Distribution Width 13.3, Platelet Count 217, Mean Platelet Volume 10.7, Neutrophils (%) (Auto) 57, Lymphocytes (%) (Auto) 31 , Monocytes (%) (Auto) 7, Eosinophils (%) (Auto) 5, Basophils (%) (Auto) 1, Neutrophils # (Auto) 5.4, Lymphocytes # (Auto) 3.0, Monocytes # (Auto) 0.7, Eosinophils # (Auto) 0.4, Basophils # (Auto) 0.1, Sodium Level 140, Potassium Level 3.8, Chloride Level 111, Carbon Dioxide Level 20, Anion Gap 9, Blood Urea Nitrogen 14, Creatinine 1.39, Estimat Glomerular Filtration Rate 52, BUN/ Creatinine Ratio 10, Glucose Level 92, Calcium Level 9.2, Phosphorus Level 2.9, Magnesium Level 2.1 Imaging: Reviewed Imaging Report Discussion & Recommendations Discharge Planning: >30 minutes discharge planning Discharge Home Medications: Active Scripts Active Instructions to patient/family Please see electronic discharge instructions given to patient. Clinical Quality Measures DVT/VTE Risk/Contraindication: Risk Factor Score Per Nursin RFS Level Per Nursing on Admit: 2=Moderate Copy Copies To 1: [facility] Problem Qualifiers (1) CAD (coronary artery disease): Coronary Disease-Associated Artery/Lesion type: [place] artery [place] vs. transplanted heart: [place] heart Associated angina: without angina Qualified Codes: I25.10 - Atherosclerotic heart disease of [place] coronary artery without angina pectoris ANNIKA BAILEY MD Oct 30, 2017 11:29 am
[2017-10-30] MEDS ORDERED: ATOR40TA70 PO (11:30)
[2017-10-30] MEDS ORDERED: LISI40TA PO (11:31)
--- NOTE | 2017-10-30 13:57 | Cardiology Progress Note ---
Cardiology SOAP Progress Note Subjective: No cardiac complaints. Objective: I&O/Vital Signs 10/30/17 10/30/17 10/30/17 10/30/17 03:54 04:00 07:00 07:00 Temp 97.8 Pulse 60 56 Resp 14 B/P (MAP) 170/98 (122) 176/104 (128) Pulse Ox 96 O2 Delivery Room Air Room Air Room Air 10/30/17 10/30/17 10/30/17 08:00 09:00 10:00 Pulse 86 B/P (MAP) 200/106 (137) 205/108 (140) O2 Delivery Room Air Room Air Room Air 10/30/17 00:00 Intake Total 775 ml Output Total 1325 ml Balance -550 ml Weight (Pounds): 154 Weight (Ounces): 2.0 Weight (Calculated Kilograms): [id number] Constitutional: appears stated age, AAO x 3; No apparent distress; well- developed, well-nourished Respiratory: No accessory muscle use, No respiratory distress, No chest tender , No chest expansion is symmetric; chest is bilaterally symmetric; No lungs clear to percussion; lungs clear to auscultation; No crackles, No rhonchi, No rales, No stridor, No wheezing, No pleural rub, No other Cardiovascular: regular rate-rhythm; No irregularly irregular, No extra beats, No parasternal heave is noted, No JVD, No edema, No bradycardia, No tachycardia , No point of maximal impulse, No cardiac thrills are palpable; S1 and S2; No gallop/S3, No gallop/S4, No diastolic murmur, No systolic murmur, No friction rub, No click, No other Gastrointestional: No tender, No soft, No round, No distended, No pulsatile mass, No organomegaly, No guarding, No rebound, No tenderness, No hernia, No mass, No audible bowel sounds, No abnormal bowel sounds, No abdominal bruits, No spleenomegaly, No other Extremities: No normal range of motion, No non-tender, No normal inspection, No pedal edema, No calf tenderness, No normal capillary refill, No pelvis stable , No calf tenderness, No inflammation, No pedal edema, No slow capillary refill , No swelling, No other, No abrasion, No clubbing, No cyanosis, No ecchymosis, No laceration, No no lower extremity edema bilateral, No significant edema, No tenderness, No wound Neurologic/Psychiatric: no motor/sensory deficits, alert, normal mood/affect, oriented x 3, power is 5/5 both on sides Skin: No normal color, No warm/dry, No cyanosis, No cool, No diaphoresis, No damp, No ecchymosis, No jaundice, No mottled, No pallor, No rash, No tattoos/ piercings, No ulcerations, No rash on exposed areas, No ulcerations on exposed areas, No other Results/Procedures: Labs Laboratory Tests 10/30/17 04:05: White Blood Count 9.6, Red Blood Count 4.50, Hemoglobin 14.6, Hematocrit 41, Mean Corpuscular Volume 91, Mean Corpuscular Hemoglobin 32, Mean Corpuscular Hemoglobin Concent 36, Red Cell Distribution Width 13.3, Platelet Count 217, Mean Platelet Volume 10.7H, Neutrophils (%) (Auto) 57, Lymphocytes (%) (Auto) 31 , Monocytes (%) (Auto) 7, Eosinophils (%) (Auto) 5, Basophils (%) (Auto) 1, Neutrophils # (Auto) 5.4, Lymphocytes # (Auto) 3.0, Monocytes # (Auto) 0.7, Eosinophils # (Auto) 0.4H, Basophils # (Auto) 0.1, Sodium Level 140, Potassium Level 3.8, Chloride Level 111H, Carbon Dioxide Level 20L, Anion Gap 9, Blood Urea Nitrogen 14, Creatinine 1.39H, Estimat Glomerular Filtration Rate 52, BUN/ Creatinine Ratio 10, Glucose Level 92, Calcium Level 9.2, Phosphorus Level 2.9, Magnesium Level 2.1 Microbiology 10/28/17 MRSA Screen - Final, Complete MRSA not isolated 10/28/17 Urine Culture - Final, Complete See Comments Sent To [facility] A/P: Assessment/Dx: Severe uncontrolled hypertension, Active smoking, Chronic kidney disease, Previous history of an [place] Plan: Severe uncontrolled hypertension: Blood pressure still elevated. On amlodipine 10 mg daily. We will add lisinopril 40 mg and see the response. Can be discharged once systolic blood pressure is below 160 mmHg. Can follow-up as an outpatient with me as well. Active smoking: Strongly recommended to quit. Chronic kidney disease: Request bilateral renal ultrasound to rule out renovascular hypertension. History of [place], no current evidence. Thank you for your consultation. Please call me if you have any questions. King Chavarria MD, FACP, FACC, FSCAI, FHRS, CCDS Interventional Cardiology Cardiac Electrophysiology Vascular Medicine and Endovascular Interventions Nisa CHAVARRIA MD Oct 30, 2017 1:57 pm
[2017-10-30] MEDS: NITROGLYCERIN 2% OINT 1 GM UNIT DOSE PACKET TOP PRN (15:00)
--- NOTE | 2017-10-30 15:32 | Diagnostic Imaging Report ---
INDICATION: Hypertension EXAM: Bilateral renal sonography performed in routine fashion, including renal artery Doppler FINDINGS: The right kidney measured 10.8 x 5.2 x 5.0 cm. The left femur measured 12.0 x 6.0 x 4.7 cm. There is no renal mass or hydronephrosis. Both kidneys showed normal cortical echogenicity and thickness. Renal artery doppler was attempted but was very limited. The proximal portions of the renal arteries and mid portions were not seen. Distal portions of the renal arteries on both sides showed normal waveforms and velocities. IMPRESSION: Normal sized kidneys bilaterally with no hydronephrosis or mass or focal abnormality. Renal artery Doppler was attempted but was very limited but showed no overt abnormality. Urinary bladder was not imaged. Dictated by: Dictated on workstation # [id number]
[2017-10-30] MEDS ORDERED: hydrALAZINE (APRESOLINE) 25 MG TAB PO NR (18:00)
[2017-10-30] MEDS: ACETAMINOPHEN 500 MG TAB (TYLENOL) PO PRN (22:49)
[2017-10-31 00:06] VITALS: BP 152/86
[2017-10-31 03:40] LABS: BASOPHILS # (AUTO) 0.1 10^3/uL (0.0-0.1); BASOPHILS % (AUTO) 1 % (0-10); EOSINOPHILS # (AUTO) 0.4 10^3/uL (0.0-0.3); EOSINOPHILS % (AUTO) 4 % (0-10); HEMATOCRIT 42 % (40-54); HEMOGLOBIN 15.5 G/DL (13.3-17.7); LYMPHOCYTES # (AUTO) 2.5 X 10^3 (1.0-4.0); LYMPHOCYTES % (AUTO) 23 % (12-44); MEAN CORPUSCULAR HEMOGLOBIN 33 PG (25-34); MEAN CORPUSCULAR HGB CONC 37 G/DL (32-36); MEAN CORPUSCULAR VOLUME 90 FL (80-99); MEAN PLATELET VOLUME 10.8 FL (7.4-10.4); MONOCYTES # (AUTO) 0.9 X 10^3 (0.0-1.0); MONOCYTES % (AUTO) 8 % (0-12); NEUTROPHILS # (AUTO) 7.1 X 10^3 (1.8-7.8); NEUTROPHILS % (AUTO) 64 % (42-75); PLATELET COUNT 229 10^3/uL (130-400); RED BLOOD COUNT 4.65 10^6/uL (4.35-5.85)
[2017-10-31 03:50] LABS: CALCIUM 9.5 MG/DL (8.5-10.1); CREATININE SERUM 1.47 MG/DL (0.60-1.30); MAGNESIUM 2.1 MG/DL (1.8-2.4); PHOSPHORUS 3.3 MG/DL (2.3-4.7); POTASSIUM 3.9 MMOL/L (3.6-5.0)
[2017-10-31 04:32] VITALS: BP 116/92
[2017-10-31] MEDS: CATHETER FLUSH 10 ML SYR IV SCH ×2 (04:52→14:01)
--- NOTE | 2017-10-31 07:36 | Progress Note-Hospitalist ---
Subjective HPI/CC On Admission Date Seen by Provider: Oct 31, 2017 Time Seen by Provider: 07:33 Pt is a 57yoCM with CAD with MT and HTN who presented to ER from [facility] clinic due to hypertension. He presented to [facility] to establish care as he has not seen a doctor in years and was found to have a SBP of greater 280 on 5 rechecks so was referred to the ER. On arrival here he remained hypertensive (reportedly >250/ 150). He denied any symptoms including chest pain, palpitations, SOB, headache, burry vision. His only compliant is 5-6 month history of staggering when he walks. Subjective/Events-last exam Unable to Dc yesterday due to consistent SBP greater than 200. Improved overnight. Patient denies any complaints. Eating sausage mcmuffin during exam. Objective Exam Vital Signs Vital Signs Date Time Temp Pulse Resp B/P (MAP) Pulse Ox O2 Delivery O2 Flow Rate FiO2 10/31/17 04:32 69 14 116/92 (100) 97 Room Air 10/31/17 04:03 98.3 Capillary Refill : Less Than 3 Seconds General Appearance: No Apparent Distress, WD/WN Respiratory: Lungs Clear, No Respiratory Distress Cardiovascular: Regular Rate, Rhythm, No Murmur Gastrointestinal: Normal Bowel Sounds, Non Tender, Soft Extremity: No Calf Tenderness, No Pedal Edema Neurologic/Psychiatric: Alert, Oriented x3, Normal Mood/Affect Results/Procedures Lab Laboratory Tests 10/31/17 03:10 Patient resulted labs reviewed. Imaging: Reviewed Imaging Report Assessment/Plan Assessment and Plan Assess & Plan/Chief Complaint Hypertension Diagnosis/Problems Diagnosis/Problems (1) Asymptomatic hypertensive urgency Status: Acute Assessment & Plan: Continue on Amlodipine and Lisinopril Echo ordered- read pending WIll watch BP this AM and if remains within goal plan to DC (2) TOI (acute kidney injury) Status: Acute Assessment & Plan: Likely CKD Will need follow up with Nephrology as an outpatient (3) CAD (coronary artery disease) Status: Chronic Assessment & Plan: Reports no previous stents Does not follow with cardiology Cardiology consulted, appreciate recs Will follow up with as an outpatient in 4 weeks Qualifiers: Coronary Disease-Associated Artery/Lesion type: [place] artery [place] vs. transplanted heart: [place] heart Associated angina: without angina Qualified Codes: I25.10 - Atherosclerotic heart disease of [place] coronary artery without angina pectoris (4) Prophylactic measure Assessment & Plan: Lovenox Saline lock HH Diet Clinical Quality Measures DVT/VTE Risk/Contraindication: Risk Factor Score Per Nursin RFS Level Per Nursing on Admit: 2=Moderate ANNIKA BAILEY MD Oct 31, 2017 07:36
[2017-10-31] MEDS: ENOXAPARIN 40 MG/0.4 ML (LOVENOX) SYR SC SCH (08:04)
[2017-10-31] MEDS: amLODIPine 10 MG (NORVASC) TAB PO SCH (08:04)
[2017-10-31 08:05] VITALS: BP 181/109
[2017-10-31] MEDS ORDERED: lisINopril 20 MG (PRINIVIL) TABLET PO SCH (09:00)
[2017-10-31 11:00] VITALS: BP 121/91
--- NOTE | 2017-10-31 15:14 | Cardiology Progress Note ---
Cardiology SOAP Progress Note Subjective: No cardiac symptoms. Objective: I&O/Vital Signs 10/31/17 10/31/17 10/31/17 10/31/17 04:03 04:03 04:32 07:00 Temp 98.3 Pulse 69 63 Resp 14 B/P (MAP) 116/92 (100) Pulse Ox 97 O2 Delivery Room Air Room Air 10/31/17 10/31/17 10/31/17 10/31/17 08:00 08:05 11:00 12:06 Temp 98.0 98.7 Pulse 79 70 Resp 16 B/P (MAP) 181/109 (133) 121/91 (101) Pulse Ox 96 O2 Delivery Room Air Room Air Room Air Room Air 10/31/17 10/31/17 10/31/17 12:07 13:00 14:01 Pulse 72 B/P (MAP) O2 Delivery Room Air 10/31/17 00:00 Intake Total 400 ml Output Total 750 ml Balance -350 ml Weight (Pounds): 154 Weight (Ounces): 8.0 Weight (Calculated Kilograms): 70.033213 Constitutional: appears stated age, AAO x 3; No apparent distress; well- developed, well-nourished Respiratory: No accessory muscle use, No respiratory distress, No chest tender , No chest expansion is symmetric; chest is bilaterally symmetric; No lungs clear to percussion; lungs clear to auscultation; No crackles, No rhonchi, No rales, No stridor, No wheezing, No pleural rub, No other Cardiovascular: regular rate-rhythm; No irregularly irregular, No extra beats, No parasternal heave is noted, No JVD, No edema, No bradycardia, No tachycardia , No point of maximal impulse, No cardiac thrills are palpable; S1 and S2; No gallop/S3, No gallop/S4, No diastolic murmur, No systolic murmur, No friction rub, No click, No other Gastrointestional: No tender, No soft, No round, No distended, No pulsatile mass, No organomegaly, No guarding, No rebound, No tenderness, No hernia, No mass, No audible bowel sounds, No abnormal bowel sounds, No abdominal bruits, No spleenomegaly, No other Extremities: No normal range of motion, No non-tender, No normal inspection, No pedal edema, No calf tenderness, No normal capillary refill, No pelvis stable , No calf tenderness, No inflammation, No pedal edema, No slow capillary refill , No swelling, No other, No abrasion, No clubbing, No cyanosis, No ecchymosis, No laceration, No no lower extremity edema bilateral, No significant edema, No tenderness, No wound Neurologic/Psychiatric: no motor/sensory deficits, alert, normal mood/affect, oriented x 3, power is 5/5 both on sides Skin: No normal color, No warm/dry, No cyanosis, No cool, No diaphoresis, No damp, No ecchymosis, No jaundice, No mottled, No pallor, No rash, No tattoos/ piercings, No ulcerations, No rash on exposed areas, No ulcerations on exposed areas, No other Results/Procedures: Labs Laboratory Tests 10/31/17 03:10: White Blood Count 11.0, Red Blood Count 4.65, Hemoglobin 15.5, Hematocrit 42, Mean Corpuscular Volume 90, Mean Corpuscular Hemoglobin 33, Mean Corpuscular Hemoglobin Concent 37H, Red Cell Distribution Width 13.0, Platelet Count 229, Mean Platelet Volume 10.8H, Neutrophils (%) (Auto) 64, Lymphocytes (%) (Auto) 23 , Monocytes (%) (Auto) 8, Eosinophils (%) (Auto) 4, Basophils (%) (Auto) 1, Neutrophils # (Auto) 7.1, Lymphocytes # (Auto) 2.5, Monocytes # (Auto) 0.9, Eosinophils # (Auto) 0.4H, Basophils # (Auto) 0.1, Sodium Level 136, Potassium Level 3.9, Chloride Level 106, Carbon Dioxide Level 20L, Anion Gap 10, Blood Urea Nitrogen 12, Creatinine 1.47H, Estimat Glomerular Filtration Rate 49, BUN/ Creatinine Ratio 8, Glucose Level 103, Calcium Level 9.5, Phosphorus Level 3.3, Magnesium Level 2.1 Microbiology 10/28/17 MRSA Screen - Final, Complete MRSA not isolated 10/28/17 Urine Culture - Final, Complete See Comments Sent To Rml A/P: Assessment/Dx: Severe uncontrolled hypertension, Active smoking, Chronic kidney disease, Previous history of an LA Plan: Severe uncontrolled hypertension: On amlodipine 10 mg daily. We will add lisinopril 40 mg and see the response. Can be discharged once systolic blood pressure is below 160 mmHg. Can follow-up as an outpatient with me as well. Active smoking: Strongly recommended to quit. Chronic kidney disease: No renal artery stenosis on renal ultrasound. May require renal consultation as an outpatient. History of LA, no current evidence. Thank you for your consultation. Please call me if you have any questions. King Chavarria MD, FACP, FACC, FSCAI, FHRS, CCDS Interventional Cardiology Cardiac Electrophysiology Vascular Medicine and Endovascular Interventions Nisa CHAVARRIA MD Oct 31, 2017 15:14
== END 2017-10-31 13:48 | disposition home or self-care (01) | DRG 305 ==
LOC: EDUNIT# 16:38 → ER 16:42 → ICU 18:16
PROVIDERS: ADMIT Family Medicine; ATTEND Family Medicine
DX: I16.0 Hypertensive urgency (principal); N17.9 Acute kidney failure, unspecified; G81.91 Hemiplegia, unspecified affecting right dominant side; I25.10 Atherosclerotic heart disease of native coronary artery without angina pectoris; I12.9 Hypertensive chronic kidney disease with stage 1 through stage 4 chronic kidney disease, or unspecified chronic kidney disease; N18.9 Chronic kidney disease, unspecified; Z66 Do not resuscitate; R26.81 Unsteadiness on feet; R29.6 Repeated falls; F17.210 Nicotine dependence, cigarettes, uncomplicated; I25.2 Old myocardial infarction
CPT/HCPCS: 36415; 70450; 71045; 76770; 80048; 80053; 80061; 81000; 82962; 83735; 84100; 84484; 85025; 85379; 85610; 85730; 87081; 87088; 93005; 93041; 93306; 93975; 96374

== ENCOUNTER 2018-02-18 16:45 | Emergency (ER) | payer SELFPAY ==
[~2018-02-18] VITALS: Ht 172.7 cm; Wt 74.4 kg
[~2018-02-18 16:45] MED LIST: AMLO10TA6 PO; ASPI-586 PO; ATOR40TA70 PO; LISI40TA PO
--- OUTSIDE RECORDS SUMMARY | 2018-02-18 16:50 | XMS REPORT ---
Author Author ANGEL TAYLOR Organization [facility] Address [address] [place] [address] Care Team Providers Care Program Lead Name Role Phone ANGEL TAYLOR Unavailable PROBLEMS Type Condition ICD9-CM Code [id number] Code Onset Dates Condition Status SNOMED Code Problem Uncontrolled hypertension I10 Active 60847181 Problem Hypertensive emergency I16.1 Active [id number] ALLERGIES No Information ENCOUNTERS Encounter Location Date Diagnosis [place] [id number] [place] [address]78[address]47 Dec, [facility] [address] [address] Dec, Uncontrolled hypertension I10 [facility] [id number] [place] [address] 30295- 1045 Nov, [facility] [address] [address]- [address] Nov, Uncontrolled hypertension I10 [facility] [id number] [place] [address] 93243- 7141 Nov, Uncontrolled hypertension I10 and Blurred vision, bilateral H53.8 [facility] [id number] [place] [address] 94524- 4468 Nov, Uncontrolled hypertension I10 [facility] [id number] [place] [address] 44739- 2684 Nov, Uncontrolled hypertension I10 and Hospital discharge follow- up Z09 [facility] [id number] [place] [address] 68733- 8966 Oct, Hypertensive emergency I16.1 IMMUNIZATIONS No Known Immunizations SOCIAL HISTORY Never Assessed REASON FOR VISIT Repository Medication PLAN OF CARE VITAL SIGNS MEDICATIONS Medication Instructions Dosage Frequency Start Date End Date Duration Status Amlodipine Besylate 10 MG Orally Once a day 1 tablet 24h 30 days Active Toprol XL 50 MG Orally Once a day 1 tablet 24h Nov, 90 days Active Atorvastatin Calcium 40 MG Orally Once a day 1 tablet 24h 90 days Active Lisinopril 40 mg Orally Once a day 1 tablet 24h 30 days Active RESULTS No Results PROCEDURES No Known procedures INSTRUCTIONS MEDICATIONS ADMINISTERED No Known Medications MEDICAL (GENERAL) HISTORY Type Description Date Medical History hypertension Medical History myocardial infarction Hospitalization History [facility] 3 days - Heart attack 2002 Hospitalization History [facility]-hypertension, TOI 2018
--- OUTSIDE RECORDS SUMMARY | 2018-02-18 16:50 | XMS REPORT ---
Author Author ANGEL TAYLOR Organization [facility] Address [address] [place] [address] Care Team Providers Care Public Health Microbiologist Name Role Phone ANGEL TAYLOR Unavailable PROBLEMS Type Condition ICD9-CM Code GUS54-TA Code Onset Dates Condition Status SNOMED Code Problem Uncontrolled hypertension I10 Active 46817799 Problem Hypertensive emergency I16.1 Active [id number] ALLERGIES No Information ENCOUNTERS Encounter Location Date Diagnosis [facility] [id number] [place] [address] 83882- 7788 Jan, Hypertensive emergency I16.1 [facility] [address] [address]- [address] Dec, [facility] [id number] [place] [address] 44485- 9021 Dec, [facility] [address] [address]- 7844 Dec, Hypertensive emergency I16.1 [facility] [id number] [place] [address] 54517- 1781 Dec, [facility] [id number] [place] [address] 94477- 4864 Dec, [facility] [id number] [place] [address] 83162- 2401 Dec, [facility] [address] [address]- [address] Dec, Uncontrolled hypertension I10 [facility] [id number] [place] [address] 87688- 3144 Nov, [facility] [id number] [place] [address] 22327- 4291 Nov, Uncontrolled hypertension I10 [facility] [id number] [address] Nov, Uncontrolled hypertension I10 and Blurred vision, bilateral H53.8 [place] [address] [address] Nov, Uncontrolled hypertension I10 [place] [id number] [address] Nov, Uncontrolled hypertension I10 and Hospital discharge follow- up Z09 [place] [id number] [address] Oct, Hypertensive emergency I16.1 IMMUNIZATIONS No Known Immunizations SOCIAL HISTORY Never Assessed REASON FOR VISIT Refill request PLAN OF CARE VITAL SIGNS MEDICATIONS Medication Instructions Dosage Frequency Start Date End Date Duration Status Amlodipine Besylate 10 MG Orally Once a day 1 tablet 24h 30 days Active RESULTS No Results PROCEDURES No Known procedures INSTRUCTIONS MEDICATIONS ADMINISTERED No Known Medications MEDICAL (GENERAL) HISTORY Type Description Date Medical History hypertension Medical History myocardial infarction Hospitalization History [facility] 3 days - Heart attack 2002 Hospitalization History VC-hypertension, TOI 2018
--- OUTSIDE RECORDS SUMMARY | 2018-02-18 16:50 | XMS REPORT ---
Author Author ANGEL TAYLOR Organization [facility] Address [address] [place] [address] Care Team Providers Care Grinder Set Up Operator Thread Tool Name Role Phone ANGEL TAYLOR Unavailable PROBLEMS Type Condition ICD9-CM Code SZE34-DR Code Onset Dates Condition Status SNOMED Code Problem Neuropathy G62.9 Active 806265300 Problem Primary hypertension I10 Active 29991958 ALLERGIES No Known Allergies ENCOUNTERS Encounter Location Date Diagnosis [facility] [address] [address] Feb, Primary hypertension I10 ; Acute kidney injury N17.9 ; Other hyperlipidemia E78.49 and Neuropathy G62.9 [facility] [address] [address]- 7[address] Jan, [facility] [address] 238[address]- 9566 Jan, Hypertensive emergency I16.1 [facility] [address] [address]66- 7763 Dec, [facility] [address] 73531- 58[address] Dec, [facility] [address] [address]- 6167 Dec, Hypertensive emergency I16.1 [facility] [address] [address]- 6882 Dec, [facility] [address] [address]- 3289 Dec, [facility] [address] [address]- [address] Dec, [place] [address] [address] Dec, Uncontrolled hypertension I10 [place] [address] [address] Nov, [place] [id number] [address] Nov, Uncontrolled hypertension I10 [place] [id number] [place] [address] 29557- 0289 Nov, Uncontrolled hypertension I10 and Blurred vision, bilateral H53.8 [place] [id number] [place] [address] 40832- 9662 Nov, Uncontrolled hypertension I10 [place] [id number] [place] [address] 48964- 9396 Nov, Uncontrolled hypertension I10 and Hospital discharge follow- up Z09 [place] [id number] [place] [address] 88018- 8787 Oct, Hypertensive emergency I16.1 IMMUNIZATIONS No Known Immunizations SOCIAL HISTORY Never Assessed REASON FOR VISIT Hypertension-ASAD preston, needs refill on meds PLAN OF CARE Activity Details Follow Up 3 Months Reason:Blood pressure VITAL SIGNS Height 68 in 2018-02-10 Weight 169.0 lbs 2018-02-10 Temperature 97.8 degrees Fahrenheit 2018-02-10 Heart Rate 72 bpm 2018-02-10 Respiratory Rate 18 2018-02-10 Oximetry on room air:97 % 2018-02-10 BMI 25.69 kg/m2 2018-02-10 Blood pressure systolic 126 mmHg 2018-02-10 Blood pressure diastolic 74 mmHg 2018-02-10 MEDICATIONS Medication Instructions Dosage Frequency Start Date End Date Duration Status Gabapentin 100 mg Orally Three times a day 1 capsule 8h Feb, 60 days Active Amlodipine Besylate 10 mg Orally Once a day 1 tablet 24h 90 days Active Atorvastatin Calcium 40 MG Orally Once a day 1 tablet 24h 90 days Active Aspir-81 81 MG Orally Once a day 1 tablet 24h 90 days Active HydrALAZINE HCl 100 mg Orally 3 times a day 2 tablets 8h 26 Dec, 2017 90 days Active Lisinopril 40 mg Orally Once a day 1 tablet 24h 90 days Active Toprol XL 50 mg Orally Once a day 1 tablet 24h Nov, 90 days Active RESULTS No Results PROCEDURES No Known procedures INSTRUCTIONS MEDICATIONS ADMINISTERED No Known Medications MEDICAL (GENERAL) HISTORY Type Description Date Medical History hypertension Medical History myocardial infarction Medical History stage three kidney failure Medical History right eye surgery Surgical History right eye surgery 01/07/2018 Hospitalization History [facility] 3 days - Heart attack 2002 Hospitalization History [facility]-hypertension, TOI 2018
--- OUTSIDE RECORDS SUMMARY | 2018-02-18 16:50 | XMS REPORT ---
Author Author ANGEL TAYLOR Organization [facility] Address [address] [place] [address] Care Team Providers Care Public Utilities Sales Representative Name Role Phone ANGEL TAYLOR Unavailable PROBLEMS Type Condition ICD9-CM Code CHK53-KS Code Onset Dates Condition Status SNOMED Code Problem Uncontrolled hypertension I10 Active 86255005 Problem Hypertensive emergency I16.1 Active 165513864973489 ALLERGIES No Information ENCOUNTERS Encounter Location Date Diagnosis [facility] [address] [address]- [address] Feb, [facility] [address] [address]- [address] Jan, [facility] [address] [address]- 2917 Jan, Hypertensive emergency I16.1 [facility] [address] 6[address]- 8440 Dec, [facility] [id number] [place] [address] 19176- 0839 Dec, [facility] [id number] [place] [address] 20964- 1124 Dec, Hypertensive emergency I16.1 [facility] [id number] [place] [address] 50322- 1751 Dec, [facility] [address] 5[address]- 5601 Dec, [facility] [id number] [place] [address] 42715- 1274 Dec, [facility] [address] 6[address]- 4097 Dec, Uncontrolled hypertension I10 [facility] [address], [place] [address]- [address] Nov, [facility] [address], [place] [address]- 0[address] Nov, Uncontrolled hypertension I10 [facility] [address], [place] [address]- 9364 Nov, Uncontrolled hypertension I10 and Blurred vision, bilateral H53.8 [place] [id number], [place] [address]- 8674 Nov, Uncontrolled hypertension I10 [place] [address] [place] [address] 28263- 5929 Nov, Uncontrolled hypertension I10 and Hospital discharge follow- up Z09 [place] [address], [place] [address]- 8[address] Oct, Hypertensive emergency I16.1 IMMUNIZATIONS No Known Immunizations SOCIAL HISTORY Never Assessed REASON FOR VISIT Requests return call PLAN OF CARE VITAL SIGNS MEDICATIONS Unknown Medications RESULTS No Results PROCEDURES No Known procedures INSTRUCTIONS MEDICATIONS ADMINISTERED No Known Medications MEDICAL (GENERAL) HISTORY Type Description Date Medical History hypertension Medical History myocardial infarction Hospitalization History [facility] 3 days - Heart attack 2002 Hospitalization History [facility]-hypertension, TOI 2018
--- OUTSIDE RECORDS SUMMARY | 2018-02-18 16:50 | XMS REPORT ---
Author Author ANGEL TAYLOR [facility] Address [address] [place] [address] Care Team Providers Care Events Specialist Name Role Phone ANGEL TAYLOR Unavailable PROBLEMS ALLERGIES No Information ENCOUNTERS IMMUNIZATIONS No Known Immunizations SOCIAL HISTORY No smoking Hx information available REASON FOR VISIT PLAN OF CARE VITAL SIGNS MEDICATIONS RESULTS No Results PROCEDURES No Known procedures INSTRUCTIONS MEDICATIONS ADMINISTERED No Known Medications MEDICAL (GENERAL) HISTORY
--- OUTSIDE RECORDS SUMMARY | 2018-02-18 16:50 | XMS REPORT ---
Author Author ANGEL TAYLOR Organization [facility] Address [address] [place] [address] Care Team Providers Care Senior Ssis Developer Name Role Phone ANGEL TAYLOR Unavailable PROBLEMS Type Condition ICD9-CM Code IIP83-QF Code Onset Dates Condition Status SNOMED Code Problem Uncontrolled hypertension I10 Active 89220042 Problem Hypertensive emergency I16.1 Active [id number] ALLERGIES No Information ENCOUNTERS Encounter Location Date Diagnosis [place] [id number] [place] [address] 03854- 5626 Dec, [facility] [address] [address]- [address] Dec, Uncontrolled hypertension I10 [facility] [id number] [place] [address] 90641- 8239 Nov, [facility] [address] [address]- 4371 Nov, Uncontrolled hypertension I10 [facility] [id number] [place] [address] 27335- 3494 Nov, Uncontrolled hypertension I10 and Blurred vision, bilateral H53.8 [facility] [id number] [place] [address] 94540- 9986 Nov, Uncontrolled hypertension I10 [facility] [id number] [place] [address] 73628- 9270 Nov, Uncontrolled hypertension I10 and Hospital discharge follow- up Z09 [facility] [id number] [place] [address] 42481- 2506 Oct, Hypertensive emergency I16.1 IMMUNIZATIONS No Known Immunizations SOCIAL HISTORY Never Assessed REASON FOR VISIT Blood pressure check, nephrology appt . LILLY Pérez PLAN OF CARE VITAL SIGNS Height 68 in 2017-11-27 Blood pressure systolic 170 mmHg 2017-11-27 Blood pressure diastolic 82 mmHg 2017-11-27 MEDICATIONS Medication Instructions Dosage Frequency Start Date End Date Duration Status Amlodipine Besylate 10 MG Orally Once a day 1 tablet 24h 30 days Active Aspir-81 81 MG Orally Once a day 1 tablet 24h Active Toprol XL 50 MG Orally Once [...] History myocardial infarction Hospitalization History [facility] 3 days - Heart attack 2002 Hospitalization History [facility]-hypertension, TOI 2017
--- OUTSIDE RECORDS SUMMARY | 2018-02-18 16:50 | XMS REPORT ---
Author Author ANGEL TAYLOR Organization [facility] Address [address] [place] [address] Care Team Providers Care Thermospray Operator Name Role Phone ANGEL TAYLOR Unavailable PROBLEMS Type Condition ICD9-CM Code VFZ96-HL Code Onset Dates Condition Status SNOMED Code Problem Uncontrolled hypertension I10 Active 78121082 Problem Hypertensive emergency I16.1 Active [id number] ALLERGIES No Information ENCOUNTERS Encounter Location Date Diagnosis [facility] [id number] [place] [address]39- 3486 Jan, Hypertensive emergency I16.1 [facility] [address] [address]- [address] Dec, [facility] [id number] [place] [address] 41931- 7231 Dec, [facility] [address] [address]- 3665 Dec, Hypertensive emergency I16.1 [facility] [id number] [place] [address] 48956- 2572 Dec, [facility] [id number] [place] [address] 79794- 4647 Dec, [facility] [id number] [place] [address] 94219- 4724 Dec, [facility] [address] 39[address]- 3035 Dec, Uncontrolled hypertension I10 [facility] [id number] [place] [address] 33364- 6843 Nov, [facility] [id number] [place] [address] 34318- 3657 Nov, Uncontrolled hypertension I10 [facility] [id number] [address]- 47[address] Nov, Uncontrolled hypertension I10 and Blurred vision, bilateral H53.8 [place] [address] [address]- 0992 Nov, Uncontrolled hypertension I10 [place] [id number], [place] [address]- 2847 Nov, Uncontrolled hypertension I10 and Hospital discharge follow- up Z09 [place] [id number], [place] [address]- 5290 Oct, Hypertensive emergency I16.1 IMMUNIZATIONS No Known Immunizations SOCIAL HISTORY Never Assessed REASON FOR VISIT eye exam PLAN OF CARE VITAL SIGNS MEDICATIONS Unknown Medications RESULTS No Results PROCEDURES No Known procedures INSTRUCTIONS MEDICATIONS ADMINISTERED No Known Medications MEDICAL (GENERAL) HISTORY Type Description Date Medical History hypertension Medical History myocardial infarction Hospitalization History [facility] 3 days - Heart attack 2002 Hospitalization History [facility]-hypert[facility], TOI 2018
--- OUTSIDE RECORDS SUMMARY | 2018-02-18 16:50 | XMS REPORT ---
Author Author ANGEL TAYLOR Organization [facility] Address [address] [place] [address] Care Team Providers Care Masonry Installer Name Role Phone ANGEL TAYLOR Unavailable PROBLEMS Type Condition ICD9-CM Code [id number] Code Onset Dates Condition Status SNOMED Code Problem Uncontrolled hypertension I10 Active 20758085 Problem Hypertensive emergency I16.1 Active [id number] ALLERGIES No Information ENCOUNTERS Encounter Location Date Diagnosis [facility] [id number] [place] [address] 98722- 8336 Dec, [facility] [address] [address]- 1684 Dec, [facility] [id number] [place] [address] 73752- 6177 Dec, [facility] [id number] [place] [address] 52185- 7221 Dec, [facility] [id number] [place] [address] 70301- 9398 Dec, [facility] [id number] [place] [address] 75980- 7958 Dec, [facility] [id number] [place] [address] 14997- 7688 Dec, Uncontrolled hypertension I10 [facility] [id number] [place] [address] 16455- 6468 Nov, [facility] [address] 80787- 8785 Nov, Uncontrolled hypertension I10 [facility] [id number] [place] [address] 25886- 0337 Nov, Uncontrolled hypertension I10 and Blurred vision, bilateral H53.8 [facility] [address] [facility] [id number] [place] [address] 0347 Nov, Uncontrolled hypertension I10 [facility] [address] [facility] [id number] [address] 8879 Nov, Uncontrolled hypertension I10 and Hospital discharge follow- up [address] [place] [address] [address] [address] [facility] [id number] [address] Oct, Hypertensive emergency I16.1 IMMUNIZATIONS No Known Immunizations SOCIAL HISTORY Never Assessed REASON FOR VISIT Referral PLAN OF CARE VITAL SIGNS MEDICATIONS Unknown Medications RESULTS No Results PROCEDURES No Known procedures INSTRUCTIONS MEDICATIONS ADMINISTERED No Known Medications MEDICAL (GENERAL) HISTORY Type Description Date Medical History hypertension Medical History myocardial infarction Hospitalization History [facility] 3 days - Heart attack 2002 Hospitalization History VC-hypertension, TOI 2018
--- OUTSIDE RECORDS SUMMARY | 2018-02-18 16:50 | XMS REPORT ---
Author Author ANGEL TAYLOR Organization [facility] Address [address] [place] [address] Care Team Providers Care Edge Finisher Name Role Phone ANGEL TAYLOR Unavailable PROBLEMS Type Condition ICD9-CM Code IVP89-KC Code Onset Dates Condition Status SNOMED Code Problem Uncontrolled hypertension I10 Active 07671003 Problem Hypertensive emergency I16.1 Active [id number] ALLERGIES No Information ENCOUNTERS Encounter Location Date Diagnosis [facility] [id number] [place] [address] 60427- 8299 Jan, Hypertensive emergency I16.1 [facility] [address] [address]- 7829 Dec, [facility] [id number] [place] [address] 89602- 4549 Dec, [facility] [address] [address]- 4072 Dec, Hypertensive emergency I16.1 [facility] [id number] [place] [address] 79263- 3832 Dec, [facility] [id number] [place] [address] 68108- 4692 Dec, [facility] [id number] [place] [address] 07543- 1607 Dec, [facility] [address] 94077- 6149 Dec, Uncontrolled hypertension I10 [facility] [id number] [place] [address] 69254- 4448 Nov, [facility] [address] 58783- 6399 Nov, Uncontrolled hypertension I10 [facility] [id number] [address] 8972 Nov, Uncontrolled hypertension I10 and Blurred vision, bilateral H53.8 [place] [address] [address] 8258 Nov, Uncontrolled hypertension I10 [place] [address] [address] 5450 Nov, Uncontrolled hypertension I10 and Hospital discharge follow- up Z09 [place] [address] [address] [id number] [address]- 5837 Oct, Hypertensive emergency I16.1 IMMUNIZATIONS No Known Immunizations SOCIAL HISTORY Never Assessed REASON FOR VISIT labs PLAN OF CARE VITAL SIGNS MEDICATIONS Unknown Medications RESULTS No Results PROCEDURES No Known procedures INSTRUCTIONS MEDICATIONS ADMINISTERED No Known Medications MEDICAL (GENERAL) HISTORY Type Description Date Medical History hypertension Medical History myocardial infarction Hospitalization History [facility] 3 days - Heart attack 2002 Hospitalization History VC-hypertension, TOI 2018
--- OUTSIDE RECORDS SUMMARY | 2018-02-18 16:50 | XMS REPORT ---
Author Author ANGEL TAYLOR Organization [facility] Address [address] [place] [address] Care Team Providers Care Ragman Name Role Phone ANGEL TAYLOR Unavailable PROBLEMS Type Condition ICD9-CM Code [id number] Code Onset Dates Condition Status SNOMED Code Problem Uncontrolled hypertension I10 Active 26342001 Problem Hypertensive emergency I16.1 Active [id number] ALLERGIES No Information ENCOUNTERS Encounter Location Date Diagnosis [facility] [id number] [place] [address] 13235- 3899 Jan, Hypertensive emergency I16.1 [facility] [address] 24945- 8560 Dec, [facility] [id number] [place] [address] 49381- 7888 Dec, [facility] [address] 65800- 6306 Dec, Hypertensive emergency I16.1 [facility] [id number] [place] [address] 77723- 6727 Dec, [facility] [id number] [place] [address] 18810- 7590 Dec, [facility] [id number] [place] [address] 43696- 8951 Dec, [facility] [address] 48371- 8196 Dec, Uncontrolled hypertension I10 [facility] [id number] [place] [address] 09350- 4714 Nov, [facility] [id number] [place] [address] 24064- 5102 Nov, Uncontrolled hypertension I10 [facility] [id number]44 Nov, Uncontrolled hypertension I10 and Blurred vision, bilateral H53.8 [place] [address], [place] [address]- 5623 Nov, Uncontrolled hypertension I10 [place] [id number], [place] [address]- 0334 Nov, Uncontrolled hypertension I10 and Hospital discharge follow- up Z09 [place] [address] [address] [id number] [address]- 8606 Oct, Hypertensive emergency I16.1 IMMUNIZATIONS No Known Immunizations SOCIAL HISTORY Never Assessed REASON FOR VISIT medication increase PLAN OF CARE VITAL SIGNS MEDICATIONS Medication Instructions Dosage Frequency Start Date End Date Duration Status HydrALAZINE HCl 100 mg Orally 3 times a day 2 tablets 8h Dec, 90 days Active RESULTS No Results PROCEDURES No Known procedures INSTRUCTIONS MEDICATIONS ADMINISTERED No Known Medications MEDICAL (GENERAL) HISTORY Type Description Date Medical History hypertension Medical History myocardial infarction Hospitalization History [facility] 3 days - Heart attack 2002 Hospitalization History VC-hypertension, TOI 2018
--- OUTSIDE RECORDS SUMMARY | 2018-02-18 16:50 | XMS REPORT ---
Author Author ANGEL TAYLOR Organization [facility] Address [address] [place] [address] Care Team Providers Care Head Wrestling Coach Name Role Phone ANGEL TAYLOR Unavailable PROBLEMS Type Condition ICD9-CM Code EZP56-FC Code Onset Dates Condition Status SNOMED Code Problem Uncontrolled hypertension I10 Active 28289680 Problem Hypertensive emergency I16.1 Active [id number] ALLERGIES No Information ENCOUNTERS Encounter Location Date Diagnosis [facility] [id number] [place] [address] 34626- 6924 Jan, Hypertensive emergency I16.1 [facility] [address] 81181- 2229 Dec, [facility] [id number] [place] [address] 54942- 7187 Dec, [facility] [address] 53032- 2857 Dec, Hypertensive emergency I16.1 [facility] [id number] [place] [address] 48853- 9335 Dec, [facility] [id number] [place] [address] 48413- 6762 Dec, [facility] [id number] [place] [address] 18376- 9108 Dec, [facility] [address] 98440- 0367 Dec, Uncontrolled hypertension I10 [facility] [id number] [place] [address] 12942- 8345 Nov, [facility] [address] 90687- 7051 Nov, Uncontrolled hypertension I10 [facility] [id number] [address]- 7397 Nov, Uncontrolled hypertension I10 and Blurred vision, bilateral H53.8 [place] [address] [address]- 4351 Nov, Uncontrolled hypertension I10 [place] [id number], [place] [address]- 7002 Nov, Uncontrolled hypertension I10 and Hospital discharge follow- up Z09 [place] [address] [id number], [place] [address]- 7539 Oct, Hypertensive emergency I16.1 IMMUNIZATIONS No Known [...]
--- OUTSIDE RECORDS SUMMARY | 2018-02-18 16:51 | XMS REPORT ---
Author Author ANGEL TAYLOR Organization [facility] Address [address] [place] [address] Care Team Providers Care Actionscript Developer Name Role Phone TAYLORANGEL Unavailable PROBLEMS Type Condition ICD9-CM Code [id number] Code Onset Dates Condition Status SNOMED Code Problem Uncontrolled hypertension I10 Active 45152147 Problem Hypertensive emergency I16.1 Active [id number] ALLERGIES No Information ENCOUNTERS Encounter Location Date Diagnosis [place] [id number] 0[address]- 1629 Dec, [facility] [address] 09407- 4921 Dec, Uncontrolled hypertension I10 [facility] [address] 69611- 5187 Nov, [facility] [address] 82933- 2349 Nov, Uncontrolled hypertension I10 [facility] [id number] [place] [address] 60293- 3203 Nov, Uncontrolled hypertension I10 and Blurred vision, bilateral H53.8 [facility] [id number] [place] [address] 82450- 6471 Nov, Uncontrolled hypertension I10 [facility] [id number] [place] [address] 29805- 5406 Nov, Uncontrolled hypertension I10 and Hospital discharge follow- up Z09 [facility] [address] 71997- 7732 Oct, Hypertensive emergency I16.1 IMMUNIZATIONS No Known Immunizations SOCIAL HISTORY Never Assessed REASON FOR VISIT new orders PLAN OF CARE VITAL SIGNS MEDICATIONS Unknown Medications RESULTS No Results PROCEDURES No Known procedures INSTRUCTIONS MEDICATIONS ADMINISTERED No Known Medications MEDICAL (GENERAL) HISTORY Type Description Date Medical History hypertension Medical History myocardial infarction Hospitalization History [facility] 3 days - Heart attack 2002 Hospitalization History VC-hypertension, TOI 2018
--- OUTSIDE RECORDS SUMMARY | 2018-02-18 16:51 | XMS REPORT ---
Author Author ANGEL TAYLOR Organization [facility] Address [address] [place] [address] Care Team Providers Care Shale Planer Operator Helper Name Role Phone ANGEL TAYLOR Unavailable PROBLEMS Type Condition ICD9-CM Code TYR11-NI Code Onset Dates Condition Status SNOMED Code Problem Uncontrolled hypertension I10 Active 13244119 Problem Hypertensive emergency I16.1 Active 062079569247203 ALLERGIES No Known Allergies ENCOUNTERS Encounter Location Date Diagnosis [facility] [id number] [place] [address] 86205- 4817 Dec, [facility] [address] 57353- 9743 Dec, Uncontrolled hypertension I10 [facility] [id number] [place] [address] 73596- 1155 Nov, [facility] [address] 02630- 8804 Nov, Uncontrolled hypertension I10 [facility] [id number] [place] [address] 38493- 8419 Nov, Uncontrolled hypertension I10 and Blurred vision, bilateral H53.8 [facility] [id number] [place] [address] 69540- 6291 Nov, Uncontrolled hypertension I10 [facility] [id number] [place] [address] 95038- 8354 Nov, Uncontrolled hypertension I10 and Hospital discharge follow- up Z09 [facility] [id number] [place] [address] 67385- 3317 Oct, Hypertensive emergency I16.1 IMMUNIZATIONS No Known Immunizations SOCIAL HISTORY Never Assessed REASON FOR VISIT Establish Care, PT reports about 3-4 months ago his balance has been off and his legs have felt like they are giving out and it has thrown of his walking. PT notes recently he has been bruising really easily. -Chelsey KENYON PLAN OF CARE Activity Details Follow Up 1 Week Reason:hospital discharge VITAL SIGNS Height 68 in 2017-10-28 Weight 160.9 lbs 2017-10-28 Temperature 98.0 degrees Fahrenheit 2017-10-28 Heart Rate 125 bpm 2017-10-28 Respiratory Rate 20 2017-10-28 Oximetry 97 % 2017-10-28 BMI 24.46 kg/m2 2017-10-28 Blood pressure systolic 200 mmHg 2017-10-28 Blood pressure diastolic 110 mmHg 2017-10-28 MEDICATIONS Unknown Medications RESULTS No Results PROCEDURES No Known procedures INSTRUCTIONS MEDICATIONS ADMINISTERED No Known Medications MEDICAL (GENERAL) HISTORY Type Description Date Medical History hypertension Medical History myocardial infarction Hospitalization History [facility] 3 days - Heart attack 2002 Hospitalization History VC-hypertension, TOI 2017
--- OUTSIDE RECORDS SUMMARY | 2018-02-18 16:51 | XMS REPORT ---
Author Author ANGEL TAYLOR Organization [facility] Address [address] [place] [address] Care Team Providers Care Banding Machine Operator Name Role Phone ANGEL TAYLOR Unavailable PROBLEMS Type Condition ICD9-CM Code CNV14-OT Code Onset Dates Condition Status SNOMED Code Problem Uncontrolled hypertension I10 Active 47966725 Problem Hypertensive emergency I16.1 Active 469719651999024 ALLERGIES No Known Allergies ENCOUNTERS Encounter Location Date Diagnosis [facility] [id number] [place] [address] 49735- 5605 Dec, [facility] [address] 84806- 5799 Dec, Uncontrolled hypertension I10 [facility] [id number] [place] [address] 40757- 2233 Nov, [facility] [address] 64066- 4433 Nov, Uncontrolled hypertension I10 [facility] [id number] [place] [address] 06490- 7192 Nov, Uncontrolled hypertension I10 and Blurred vision, bilateral H53.8 [facility] [id number] [place] [address] 54892- 7372 Nov, Uncontrolled hypertension I10 [facility] [id number] [place] [address] 58771- 2904 Nov, Uncontrolled hypertension I10 and Hospital discharge follow- up Z09 [facility] [id number] [place] [address] 94754- 3578 Oct, Hypertensive emergency I16.1 IMMUNIZATIONS No Known Immunizations SOCIAL HISTORY Never Assessed REASON FOR VISIT VC Hosp follow up----DBennettRN PLAN OF CARE Activity Details Follow Up 2 Weeks Reason:hypertension VITAL SIGNS Height 68 in 2017-11-04 Weight 162.5 lbs 2017-11-04 Temperature 97.6 degrees Fahrenheit 2017-11-04 Heart Rate 80 bpm 2017-11-04 Respiratory Rate 20 2017-11-04 BMI 24.71 kg/m2 2017-11-04 Blood pressure systolic 172 mmHg 2017-11-04 Blood pressure diastolic 100 mmHg 2017-11-04 MEDICATIONS Medication Instructions Dosage Frequency Start Date End Date Duration Status Amlodipine Besylate 10 MG Orally Once a day 1 tablet 24h Active Toprol XL 25 MG Orally Once a day 1 tablet 24h Nov, 30 day(s) Active Lisinopril 40 MG Orally Once a day 1 tablet 24h Active Aspir-81 81 MG Orally Once a day 1 tablet 24h Active Atorvastatin Calcium 40 MG Orally Once a day 1 tablet 24h Active RESULTS No Results PROCEDURES No Known procedures INSTRUCTIONS MEDICATIONS ADMINISTERED No Known Medications MEDICAL (GENERAL) HISTORY Type Description Date Medical History hypertension Medical History myocardial infarction Hospitalization History [facility] 3 days - Heart attack 2002 Hospitalization History VC-hypertension, TOI 2017
--- OUTSIDE RECORDS SUMMARY | 2018-02-18 16:51 | XMS REPORT ---
Author Author ANGEL ATYLOR Organization [facility] Address [address] [place] [address] Care Team Providers Care Sport Intern Name Role Phone ANGEL TAYLOR Unavailable PROBLEMS Type Condition ICD9-CM Code CEQ63-JV Code Onset Dates Condition Status SNOMED Code Problem Uncontrolled hypertension I10 Active 46394075 Problem Hypertensive emergency I16.1 Active [id number] ALLERGIES No Known Allergies ENCOUNTERS Encounter Location Date Diagnosis [place] [id number] [place] [address] 90544- 3163 Dec, [facility] [address] [address]- 8187 Dec, Uncontrolled hypertension I10 [facility] [id number] [place] [address] 84732- 8392 Nov, [facility] [address] 330[address]- 3846 Nov, Uncontrolled hypertension I10 [facility] [id number] [place] [address] 36344- 0028 Nov, Uncontrolled hypertension I10 and Blurred vision, bilateral H53.8 [facility] [id number] [place] [address] 58325- 5907 Nov, Uncontrolled hypertension I10 [facility] [id number] [place] [address] 44670- 1990 Nov, Uncontrolled hypertension I10 and Hospital discharge follow- up Z09 [facility] [id number] [place] [address] 12790- 1092 Oct, Hypertensive emergency I16.1 IMMUNIZATIONS No Known Immunizations SOCIAL HISTORY Never Assessed REASON FOR VISIT Hypertension-CHANTALE preston, having dizziness, falling, headaces, and visoin problem in both eyes PLAN OF CARE Activity Details Follow Up 2 Weeks Reason:pending lab VITAL SIGNS Height 68 in 2017-11-18 Weight 161.2 lbs 2017-11-18 Temperature 98.2 degrees Fahrenheit 2017-11-18 Heart Rate 79 bpm 2017-11-18 Respiratory Rate 20 2017-11-18 Oximetry on room air:97 % 2017-11-18 BMI 24.51 kg/m2 2017-11-18 Blood pressure systolic 160 mmHg 2017-11-18 Blood pressure diastolic 102 mmHg 2017-11-18 MEDICATIONS Medication Instructions Dosage Frequency Start Date End Date Duration Status Atorvastatin Calcium 40 MG Orally Once a day 1 tablet 24h Active Toprol XL 50 MG Orally Once a day 1 tablet 24h Nov, Active Aspir-81 81 MG Orally Once a day 1 tablet 24h Active Amlodipine Besylate 10 MG Orally Once a day 1 tablet 24h Active Lisinopril 40 MG Orally Once a day 1 tablet 24h Active RESULTS No Results PROCEDURES Procedure Date Ordered Result Body Site COMPREHEN METABOLIC PANEL Nov 18, 2017 VENIPUNCT, ROUTINE* Nov 18, 2017 INSTRUCTIONS MEDICATIONS ADMINISTERED No Known Medications MEDICAL (GENERAL) HISTORY Type Description Date Medical History hypertension Medical History myocardial infarction Hospitalization History [facility] 3 days - Heart attack 2002 Hospitalization History [facility]-hypertension, TOI 2018
[2018-02-18 17:31] LABS: BASOPHILS # (AUTO) 0.1 10^3/uL (0.0-0.1); BASOPHILS % (AUTO) 2 % (0-10); EOSINOPHILS # (AUTO) 0.3 10^3/uL (0.0-0.3); EOSINOPHILS % (AUTO) 4 % (0-10); HEMATOCRIT 41 % (40-54); HEMOGLOBIN 14.3 G/DL (13.3-17.7); LYMPHOCYTES # (AUTO) 1.7 X 10^3 (1.0-4.0); LYMPHOCYTES % (AUTO) 23 % (12-44); MEAN CORPUSCULAR HEMOGLOBIN 32 PG (25-34); MEAN CORPUSCULAR HGB CONC 35 G/DL (32-36); MEAN CORPUSCULAR VOLUME 92 FL (80-99); MONOCYTES % (AUTO) 13 % (0-12); NEUTROPHILS # (AUTO) 4.2 X 10^3 (1.8-7.8); NEUTROPHILS % (AUTO) 58 % (42-75); PLATELET COUNT 258 10^3/uL (130-400); RED BLOOD COUNT 4.46 10^6/uL (4.35-5.85); WHITE BLOOD COUNT 7.2 10^3/uL (4.3-11.0)
[2018-02-18 17:49] LABS: ALANINE AMINOTRANSFERASE 105 U/L (0-55); ALBUMIN 4.6 GM/DL (3.2-4.5); ALKALINE PHOSPHATASE 87 U/L (40-136); BILIRUBIN,TOTAL 0.9 MG/DL (0.1-1.0); BUN/CREATININE RATIO 18; CALCIUM 9.9 MG/DL (8.5-10.1); CARBON DIOXIDE 23 MMOL/L (21-32); CHLORIDE 101 MMOL/L (98-107); CREATININE SERUM 1.31 MG/DL (0.60-1.30); GFR ESTIMATED 56; GLUCOSE 93 MG/DL (70-105); POTASSIUM 3.8 MMOL/L (3.6-5.0); SODIUM 135 MMOL/L (135-145); TOTAL PROTEIN 8.5 GM/DL (6.4-8.2)
--- NOTE | 2018-02-18 18:06 | ED General ---
General Chief Complaint: Cardiac/General Problems Stated Complaint: HIGH BLOOD PRESSURE.HEADACHE. Nursing Triage Note: Pt ambulated to rm 10 w/o difficulty. Pt c/o high blood pressure, MERCER and tingling in hands and feet that has been going on since October. Pt states pt sees Dr. Gutierres. Pt very tearful during assessment. Pt denies chest pain. Nursing Sepsis Screen: No Definite Risk Source of Information: Patient, Family Exam Limitations: No Limitations History of Present Illness Date Seen by Provider: Feb 18, 2018 Time Seen by Provider: 18:01 Initial Comments The patient is a 57-year-old white male who presents today brought by family. He reports that he has felt bad since October. He was admitted for 3 days during late October with severe hypertension. Subsequently he has seen cardiology, ophthalmology and had laser treatment in [place], numbness in his feet, constipation, and generalized poor performance. He had previously weighed about 180 pounds but now weighs about 160 pounds which appears to be good weight for him. Timing/Duration: Other (ill for 4 months) Allergies and Home Medications Allergies Coded Allergies: No Known Drug Allergies (Unverified , 10/28/17) Home Medications Amlodipine Besylate 10 Mg Tablet, 10 MG PO DAILY Prescribed by: ANNIKA BAILEY on 10/30/17 1131 Aspirin 81 Mg Tablet.dr, 81 MG PO DAILY Prescribed by: ANNIKA BAILEY on 10/30/17 1131 Atorvastatin Calcium 40 Mg Tablet, 40 MG PO HS Prescribed by: ANNIKA BAILEY on 10/30/17 1130 Lisinopril 40 Mg Tablet, 40 MG PO 0948 Prescribed by: ANNIKA BAILEY on 10/30/17 1131 Patient Home Medication List Home Medication List Reviewed: Yes Review of Systems Review of Systems Constitutional: see HPI EENTM: vision loss Respiratory: no symptoms reported Cardiovascular: vascular heart diseas, other Gastrointestinal: constipation Genitourinary: decreased output, other (has seen a hourly shift. Kidney function is said to be maintained at this time.) Musculoskeletal: muscle weakness Skin: no symptoms reported Psychiatric/Neurological: Depressed Hematologic/Lymphatic: No Symptoms Reported Immunological/Allergic: no symptoms reported Past Rbbwkuu-Grszap-Pdxxtz Hx Patient Social History Alcohol Use: Occasionally Uses Number of Drinks Today: AA Alcohol Beverage of Choice: Beer Recreational Drug Use: No Smoking Status: Current Everyday Smoker Type Used: Cigarettes 2nd Hand Smoke Exposure: Yes Recent Foreign Travel: No Contact w/Someone Who Travel: No Recent Infectious Disease Expo: No Recent Hopitalizations: No Seasonal Allergies Seasonal Allergies: No Past Medical History Surgeries: No Respiratory: No Cardiac: Yes Heart Attack, Hypertension Neurological: No Genitourinary: No Gastrointestinal: No Musculoskeletal: No Endocrine: No HEENT: No (diminished vision bilaterally, needs new glasses) Cancer: No Psychosocial: No Integumentary: No Blood Disorders: No Family Medical History Heart Disease, CAD Over 55 Years Old Physical Exam Vital Signs Vital Signs - First Documented 02/18/18 16:55 Temp 96.4 Pulse 73 Resp 19 B/P (MAP) 165/93 (117) Pulse Ox 98 O2 Delivery Room Air Capillary Refill : Less Than 3 Seconds Height, Weight, BMI Height: 5'8.00" Weight: 164lbs. 8.0oz. 74.944364cy; 23.4 BMI Method:Stated General Appearance: No Apparent Distress HEENT: Normal ENT Inspection Neck: Normal Inspection Respiratory: Chest Non Tender, Lungs Clear, Normal Breath Sounds, No Accessory Muscle Use, No Respiratory Distress Cardiovascular: Regular Rate, Rhythm, No Edema, No Gallop, No JVD, No Murmur, Normal Peripheral Pulses Gastrointestinal: Normal Bowel Sounds, No Organomegaly, No Pulsatile Mass, Non Tender, Soft Back: Normal Inspection Extremity: Normal Capillary Refill, Normal Inspection, Normal Range of Motion, Non Tender, No Calf Tenderness, No Pedal Edema Neurologic/Psychiatric: Alert, Oriented x3, No Motor/Sensory Deficits, Normal Mood/Affect Skin: Normal Color, Warm/Dry Lymphatic: No Adenopathy Progress/Results/Core Measures Suspected Sepsis Recent Fever Within 48 Hours: No Infection Criteria Present: None New/Unexplained Altered Menta: No Sepsis Screen: No Definite Risk SIRS Temperature:96.4 Pulse: 73 Respiratory Rate: 19 Laboratory Tests 02/18/18 17:10: White Blood Count 7.2 Blood Pressure 165 /93 Mean: 117 Laboratory Tests 02/18/18 17:10: Creatinine 1.31H, Platelet Count 258, Total Bilirubin 0.9 Results/Orders Lab Results Laboratory Tests Test 02/18/18 17:10 Range/Units White Blood Count 7.2 4.3-11.0 10^3/uL Red Blood Count 4.46 4.35-5.85 10^6/uL Hemoglobin 14.3 13.3-17.7 G/DL Hematocrit 41 40-54 % Mean Corpuscular Volume 92 80-99 FL Mean Corpuscular Hemoglobin 32 25-34 PG Mean Corpuscular Hemoglobin Concent 35 32-36 G/DL Red Cell Distribution Width 13.0 10.0-14.5 % Platelet Count 258 130-400 10^3/uL Mean Platelet Volume 10.0 7.4-10.4 FL Neutrophils (%) (Auto) 58 42-75 % Lymphocytes (%) (Auto) 23 12-44 % Monocytes (%) (Auto) 13 H 0-12 % Eosinophils (%) (Auto) 4 0-10 % Basophils (%) (Auto) 2 0-10 % Neutrophils # (Auto) 4.2 1.8-7.8 X 10^3 Lymphocytes # (Auto) 1.7 1.0-4.0 X 10^3 Monocytes # (Auto) 1.0 0.0-1.0 X 10^3 Eosinophils # (Auto) 0.3 0.0-0.3 10^3/uL Basophils # (Auto) 0.1 0.0-0.1 10^3/uL Sodium Level 135 135-145 MMOL/L Potassium Level 3.8 3.6-5.0 MMOL/L Chloride Level 101 98-107 MMOL/L Carbon Dioxide Level 23 21-32 MMOL/L Anion Gap 11 5-14 MMOL/L Blood Urea Nitrogen 23 H 7-18 MG/DL Creatinine 1.31 H 0.60-1.30 MG/DL Estimat Glomerular Filtration Rate 56 BUN/Creatinine Ratio 18 Glucose Level 93 70-105 MG/DL Calcium Level 9.9 8.5-10.1 MG/DL Corrected Calcium 8.5-10.1 MG/DL Total Bilirubin 0.9 0.1-1.0 MG/DL Aspartate Amino Transf (AST/SGOT) 99 H 5-34 U/L Alanine Aminotransferase (ALT/SGPT) 105 H 0-55 U/L Alkaline Phosphatase 87 40-136 U/L Total Protein 8.5 H 6.4-8.2 GM/DL Albumin 4.6 H 3.2-4.5 GM/DL My Orders Orders - CLAUDIA BALLARD MD Cbc With Automated Diff (02/18/18 16:53) Comprehensive Metabolic Panel (02/18/18 16:53) Hepatitis C Antibody (02/18/18 18:18) Vital Signs/I&O 02/18/18 16:55 Temp 96.4 Pulse 73 Resp 19 B/P (MAP) 165/93 (117) Pulse Ox 98 O2 Delivery Room Air Capillary Refill : Less Than 3 Seconds Blood Pressure Mean: 117 Departure Impression Primary Impression: severe hypertension Disposition: 01 HOME, SELF-CARE Condition: Stable/Unchanged Departure-Patient Inst. Decision time for Depature: 18:07 Referrals: [facility]/ (Family) Primary Care Physician Add. Discharge Instructions: All discharge instructions reviewed with patient and/or family. Voiced understanding. Continue present medications. Take MiraLAX daily to control constipation Make an appointment at [facility] to go through your various health problems and management plans for each of them. Your liver enzymes were elevated on blood testing. They were similarly elevated in your October contact. I have ordered a hepatitis test. This take several days to return. Make an appointment at [facility] for about 2 weeks in order to have an exam and get your results. Get MiraLAX which is [id number] and take 1 dose in juice daily to have more prompt bowel movements. CLAUDIA BALLARD MD Feb 18, 2018 18:06
[2018-02-18 19:58] VITALS: BP 148/77
[2018-02-22 07:28] LABS: HEPATITIS C ANTIBODY C Reactive (Non-Reactive)
== END 2018-02-18 18:01 | disposition home or self-care (01) ==
LOC: EDUNIT# 16:45 → ER 16:46
DX: I10 Essential (primary) hypertension (principal); I25.2 Old myocardial infarction; F17.210 Nicotine dependence, cigarettes, uncomplicated; Z79.82 Long term (current) use of aspirin; Z82.49 Family history of ischemic heart disease and other diseases of the circulatory system
CPT/HCPCS: 36415; 80053; 85025; 86803